=== PATIENT | female | born 1975 | race Caucasian/White ===

== ENCOUNTER 2017-06-03 15:00 | Observation (INO) ==
[2017-06-03] MEDS ORDERED: 0.9 % Sodium Chloride 1,000 ML IVC ONE ×2 (15:18→17:27)
[2017-06-03 15:35] LABS: Bilirubin,Urine Negative (Negative); Blood,Urine Negative (Negative); Clarity,Urine Clear (Clear); Color,Urine Yellow (Yellow); Glucose,Urine (UA) >=1000 mg/dL (Normal); Ketones,Urine Negative (Negative); Leukocyte Esterase,Urine Negative (Negative); Nitrite,Urine Negative (Negative); PH,Urine 6.5 pH Units (5.0-8.0); Protein,Urine Negative (Neg-Trace); Specific Gravity,Urine > 1.030 (1.010-1.025); Urobilinogen,Urine Normal (Normal)
[2017-06-03 15:41] LABS: Basophils # 0.1 K/mcL (0.0-0.2); Basophils % 0.7 %; Eosinophils # 0.2 K/mcL (0.0-0.6); Eosinophils % 2.5 %; Hematocrit 43.2 % (35.3-44.9); Hemoglobin 14.9 g/dL (11.5-15.4); Immature Granulocytes % 0.3 % (0-4); Lymphocytes # 3.2 K/mcL (0.6-4.6); Lymphocytes % 46.3 %; Mean Corpuscular HGB Conc 34.5 g/dL (31.6-35.5); Mean Corpuscular Hemoglobin 29.6 pg (28.0-33.3); Mean Corpuscular Volume 85.9 fL (83.0-100.0); Mean Platelet Volume 11.8 fL (9.4-12.4); Monocytes # 0.5 K/mcL (0.0-1.3); Monocytes % 7.2 %; Neutrophils # 2.9 K/mcL (1.6-8.9); Platelet Count 157 K/mcL (140-400); Red Blood Count 5.03 M/mcL (3.82-4.97); Red Cell Distribution Width 12.9 % (11.5-14.5)
--- NOTE | 2017-06-03 15:41 | Emergency Department Note ---
Disposition Clinical Impression: Hyperglycemia, Transaminitis, Lactic acidosis Disposition: Admitted As Inpatient Condition: Good General Adult HPI - General Chief complaint: ED General Medical Stated complaint: hyperglycemia Time Seen by Provider: 06/03/17 15:17 Source: patient Mode of arrival: ambulatory Limitations: no limitations Nursing Notes Reviewed: Yes Vital Signs Reviewed: Yes - History of Present Illness HPI Narrative: 42-year-old female presents to emergency Department with concerns of hyperglycemia. Patient states that she has had frequent urination, and intermittent abdominal pain over the past month. Patient states she has lost greater than 15 pounds. Patient states she had a urinalysis performed by her primary care provider which showed a large amount of glucose in her urine. They recommended she come to the emergency department for further care and evaluation. Patient does state she have a history of liver disease but does not have an official diagnosis. Patient denies recent trauma. She has no pain in the emergency department. Pain Scale: 0 - Related Data Home Medications Medication Instructions Recorded Confirmed Gabapentin [Neurontin] 600 mg PO TID 04/15/16 06/03/17 Metoprolol [Lopressor] 25 mg PO BID 04/15/16 06/03/17 hydroCHLOROthiazide 25 mg PO DAILY 04/15/16 06/03/17 [Hydrochlorothiazide] ALPRAZolam [Xanax 1 MG Tablet] 1 mg PO BID 06/03/17 06/03/17 Buprenorphine HCl/Naloxone HCl 1 each SL BID 06/03/17 06/03/17 [Suboxone 8 mg-2 mg Sl Film] Lisinopril [Lisinopril] 30 mg PO DAILY 06/03/17 06/03/17 Allergies Allergy/AdvReac Type Severity Reaction Status Date / Time No Known Allergies Allergy Verified 04/14/16 22:45 All systems ED: reviewed and negative except as stated. Constitutional: Reports: weakness. Denies: fever, chills Cardiovascular: Reports: dyspnea on exertion. Denies: chest pain, palpitations , syncope, paroxysmal nocturnal dyspnea Respiratory: Reports: cough, dyspnea. Denies: wheezes, hemoptysis Gastrointestinal: Reports: abdominal pain, nausea, vomiting. Denies: diarrhea Genitourinary: Reports: urgency, dysuria, frequency. Denies: hematuria, discharge Musculoskeletal: Denies: back pain, neck pain Integumentary: Denies: rash, abrasion, lesions Past Medical History - Past Medical History Attestation: Yes The following information was validated with the patient. Source: patient Medical history: Reports: hypertension, other (Gestational diabetes) Psychiatric history: Reports: no psych history - Social History Smoking Status: Current every day smoker Smokeless Tobacco Status: No Alcohol use: Reports: none Drug use: Reports: none Physical Exam General: Alert and in no acute distress but anxious during the exam Skin: Warm, dry, intact Head: Normocephalic and atraumatic Neck: Supple, trachea midline and no tenderness Cardiovascular: RRR, no murmur, normal perfusion Respiratory: CTAB, no wheezing, cough, or respiratory distress Musculoskeletal: Normal strength, no tenderness, swelling or deformity GI: Soft, nontender, nondistended. Bowel sounds present Neuro: A&O to person, place, time and situation. No focal deficits noted on exam Psychiatric: cooperative and appropriate mood and affect. - General Limitations: no limitations General appearance: alert, in no apparent distress Course Vital Signs Temperature 99.2 F 06/03/17 15:00 Pulse Rate 110 06/03/17 15:00 Respiratory Rate 18 06/03/17 15:00 Blood Pressure 143/84 06/03/17 15:00 O2 Sat by Pulse Oximetry 99 06/03/17 15:00 Temperature 98.1 F 06/03/17 23:28 Pulse Rate 63 06/03/17 23:28 Respiratory Rate 18 06/03/17 23:28 Blood Pressure 92/71 06/03/17 23:28 O2 Sat by Pulse Oximetry 96 06/03/17 19:47 Oxygen Delivery Oxygen Delivery Room Air Medical Decision Making - Medical Records Medical records reviewed: Yes I reviewed the patient's medical records. - Lab Data Lab results reviewed: Yes I reviewed the patient's lab results. Result diagrams: 06/03/17 15:32 06/03/17 20:02 Lab Results 06/03/17 06/03/17 06/03/17 Range/Units 15:12 15:30 15:32 WBC 6.8 (4.3-11.1) K/mcL RBC 5.03 H (3.82-4.97) M/mcL Hgb 14.9 (11.5-15.4) g/dL Hct 43.2 (35.3-44.9) % MCV 85.9 (83.0-100.0) fL MCH 29.6 (28.0-33.3) pg MCHC 34.5 (31.6-35.5) g/dL RDW 12.9 (11.5-14.5) % Plt Count 157 (140-400) K/mcL MPV 11.8 (9.4-12.4) fL Immature Gran % 0.3 (0-4) % Seg Neutrophils % 43.0 % Lymphocytes % 46.3 % Monocytes % 7.2 % Eosinophils % 2.5 % Basophils % 0.7 % Neutrophils # 2.9 (1.6-8.9) K/mcL Lymphocytes # 3.2 (0.6-4.6) K/mcL Monocytes # 0.5 (0.0-1.3) K/mcL Eosinophils # 0.2 (0.0-0.6) K/mcL Basophils # 0.1 (0.0-0.2) K/mcL ABG pH (7.32-7.45) pH Units ABG pCO2 (35-45) mmHg ABG pO2 (85-104) mmHg ABG HCO3 (21-27) mEq/L ABG Total CO2 (20-26) mEq/L ABG O2 Saturation (95-98) % ABG Base Excess (-2.0 to 3.0) mEq/L Blood Gas Modality Inspired O2 % Sodium (136-145) mEq/L Potassium (3.5-4.5) mEq/L Chloride (98-109) mEq/L Carbon Dioxide (19-29) mEq/L BUN (7-20) mg/dL Creatinine (0.57-1.11) mg/dL Est GFR ( Amer) (> 60) Est GFR (Non-Af Amer) (> 60) BUN/Creatinine Ratio (6-26) Glucose (70-99) mg/dL POC Glucose > 600 H* (58-89) Est Mean Plasma Glucose mg/dl Hemoglobin A1c ( - 5.6) % Calculated Osmolality (280-300) Lactic Acid (0.5-2.2) mmol/L Calcium (8.6-10.8) mg/dL Total Bilirubin (0.2-1.2) mg/dL Direct Bilirubin (0.0-0.5) mg/dL Indirect Bilirubin (0.0-1.2) mg/dL AST (5-34) Units/L ALT (0-55) Units/L Alkaline Phosphatase (38-126) Units/L Troponin I (0-0.03) ng/mL Serum Total Protein (6.0-8.3) g/dL Albumin (3.5-5.0) g/dL Globulin (2.4-3.5) g/dL Albumin/Globulin Ratio (1.1-2.2) Lipase (8-78) Units/L Beta-Hydroxybutyric Acd (0.02-0.27) mmol/L Urine Color Yellow (Yellow) Urine Clarity Clear (Clear) Urine pH 6.5 (5.0-8.0) pH Units Ur Specific [place] > 1.030 H (1.010-1.025) Urine Protein Negative (Neg-Trace) mg/dL Urine Glucose (UA) >=1000 H (Normal) mg/dL Urine Ketones Negative (Negative) mg/dL Urine Blood Negative (Negative) Urine Nitrite Negative (Negative) Urine Bilirubin Negative (Negative) Urine Urobilinogen Normal (Normal) mg/dL Ur Leukocyte Esterase Negative (Negative) Ur Culture Indicated? NO (NO) Hep Bs Antigen (Nonreactive) 06/03/17 06/03/17 06/03/17 Range/Units 15:32 15:32 15:32 WBC (4.3-11.1) K/mcL RBC (3.82-4.97) M/mcL Hgb (11.5-15.4) g/dL Hct (35.3-44.9) % MCV (83.0-100.0) fL MCH (28.0-33.3) pg MCHC (31.6-35.5) g/dL RDW (11.5-14.5) % Plt Count (140-400) K/mcL MPV (9.4-12.4) fL Immature Gran % (0-4) % Seg Neutrophils % % Lymphocytes % % Monocytes % % Eosinophils % % Basophils % % Neutrophils # (1.6-8.9) K/mcL Lymphocytes # (0.6-4.6) K/mcL Monocytes # (0.0-1.3) K/mcL Eosinophils # (0.0-0.6) K/mcL Basophils # (0.0-0.2) K/mcL ABG pH (7.32-7.45) pH Units ABG pCO2 (35-45) mmHg ABG pO2 (85-104) mmHg ABG HCO3 (21-27) mEq/L ABG Total CO2 (20-26) mEq/L ABG O2 Saturation (95-98) % ABG Base Excess (-2.0 to 3.0) mEq/L Blood Gas Modality Inspired O2 % Sodium 130 L (136-145) mEq/L Potassium 4.5 (3.5-4.5) mEq/L Chloride 97 L (98-109) mEq/L Carbon Dioxide 22 (19-29) mEq/L BUN 6 L (7-20) mg/dL Creatinine 1.12 H (0.57-1.11) mg/dL Est GFR ( Amer) > 60 (> 60) Est GFR (Non-Af Amer) 54 L (> 60) BUN/Creatinine Ratio 5 L (6-26) Glucose 730 H* (70-99) mg/dL POC Glucose (58-89) Est Mean Plasma Glucose mg/dl Hemoglobin A1c ( - 5.6) % Calculated Osmolality 303 H (280-300) Lactic Acid (0.5-2.2) mmol/L Calcium 9.3 (8.6-10.8) mg/dL Total Bilirubin 1.8 H (0.2-1.2) mg/dL Direct Bilirubin 1.2 H (0.0-0.5) mg/dL Indirect Bilirubin 0.6 (0.0-1.2) mg/dL AST 1135 H (5-34) Units/L ALT 1357 H (0-55) Units/L Alkaline Phosphatase 1165 H (38-126) Units/L Troponin I 0.00 (0-0.03) ng/mL Serum Total Protein 6.8 (6.0-8.3) g/dL Albumin 3.2 L (3.5-5.0) g/dL Globulin 3.6 H (2.4-3.5) g/dL Albumin/Globulin Ratio 0.9 L (1.1-2.2) Lipase 115 H (8-78) Units/L Beta-Hydroxybutyric Acd 0.22 (0.02-0.27) mmol/L Urine Color (Yellow) Urine Clarity (Clear) Urine pH (5.0-8.0) pH Units Ur Specific [place] (1.010-1.025) Urine Protein (Neg-Trace) mg/dL Urine Glucose (UA) (Normal) mg/dL Urine Ketones (Negative) mg/dL Urine Blood (Negative) Urine Nitrite (Negative) Urine Bilirubin (Negative) Urine Urobilinogen (Normal) mg/dL Ur Leukocyte Esterase (Negative) Ur Culture Indicated? (NO) Hep Bs Antigen (Nonreactive) 06/03/17 06/03/17 06/03/17 Range/Units 15:32 18:20 18:59 WBC (4.3-11.1) K/mcL RBC (3.82-4.97) M/mcL Hgb (11.5-15.4) g/dL Hct (35.3-44.9) % MCV (83.0-100.0) fL MCH (28.0-33.3) pg MCHC (31.6-35.5) g/dL RDW (11.5-14.5) % Plt Count (140-400) K/mcL MPV (9.4-12.4) fL Immature Gran % (0-4) % Seg Neutrophils % % Lymphocytes % % Monocytes % % Eosinophils % % Basophils % % Neutrophils # (1.6-8.9) K/mcL Lymphocytes # (0.6-4.6) K/mcL Monocytes # (0.0-1.3) K/mcL Eosinophils # (0.0-0.6) K/mcL Basophils # (0.0-0.2) K/mcL ABG pH 7.42 (7.32-7.45) pH Units ABG pCO2 38 (35-45) mmHg ABG pO2 86 (85-104) mmHg ABG HCO3 25 (21-27) mEq/L ABG Total CO2 25.8 (20-26) mEq/L ABG O2 Saturation 97 (95-98) % ABG Base Excess 0.2 (-2.0 to 3.0) mEq/L Blood Gas Modality RA Inspired O2 21 % Sodium (136-145) mEq/L Potassium (3.5-4.5) mEq/L Chloride (98-109) mEq/L Carbon Dioxide (19-29) mEq/L BUN (7-20) mg/dL Creatinine (0.57-1.11) mg/dL Est GFR ( Amer) (> 60) Est GFR (Non-Af Amer) (> 60) BUN/Creatinine Ratio (6-26) Glucose (70-99) mg/dL POC Glucose 231 H (58-89) Est Mean Plasma Glucose mg/dl Hemoglobin A1c ( - 5.6) % Calculated Osmolality (280-300) Lactic Acid 3.2 H (0.5-2.2) mmol/L Calcium (8.6-10.8) mg/dL Total Bilirubin (0.2-1.2) mg/dL Direct Bilirubin (0.0-0.5) mg/dL Indirect Bilirubin (0.0-1.2) mg/dL AST (5-34) Units/L ALT (0-55) Units/L Alkaline Phosphatase (38-126) Units/L Troponin I (0-0.03) ng/mL Serum Total Protein (6.0-8.3) g/dL Albumin (3.5-5.0) g/dL Globulin (2.4-3.5) g/dL Albumin/Globulin Ratio (1.1-2.2) Lipase (8-78) Units/L Beta-Hydroxybutyric Acd (0.02-0.27) mmol/L Urine Color (Yellow) Urine Clarity (Clear) Urine pH (5.0-8.0) pH Units Ur Specific [place] (1.010-1.025) Urine Protein (Neg-Trace) mg/dL Urine Glucose (UA) (Normal) mg/dL Urine Ketones (Negative) mg/dL Urine Blood (Negative) Urine Nitrite (Negative) Urine Bilirubin (Negative) Urine Urobilinogen (Normal) mg/dL Ur Leukocyte Esterase (Negative) Ur Culture Indicated? (NO) Hep Bs Antigen (Nonreactive) 06/03/17 06/03/17 06/03/17 Range/Units 20:02 20:02 20:02 WBC (4.3-11.1) K/mcL RBC (3.82-4.97) M/mcL Hgb (11.5-15.4) g/dL Hct (35.3-44.9) % MCV (83.0-100.0) fL MCH (28.0-33.3) pg MCHC (31.6-35.5) g/dL RDW (11.5-14.5) % Plt Count (140-400) K/mcL MPV (9.4-12.4) fL Immature Gran % (0-4) % Seg Neutrophils % % Lymphocytes % % Monocytes % % Eosinophils % % Basophils % % Neutrophils # (1.6-8.9) K/mcL Lymphocytes # (0.6-4.6) K/mcL Monocytes # (0.0-1.3) K/mcL Eosinophils # (0.0-0.6) K/mcL Basophils # (0.0-0.2) K/mcL ABG pH (7.32-7.45) pH Units ABG pCO2 (35-45) mmHg ABG pO2 (85-104) mmHg ABG HCO3 (21-27) mEq/L ABG Total CO2 (20-26) mEq/L ABG O2 Saturation (95-98) % ABG Base Excess (-2.0 to 3.0) mEq/L Blood Gas Modality Inspired O2 % Sodium 137 D (136-145) mEq/L Potassium 3.9 (3.5-4.5) mEq/L Chloride 106 (98-109) mEq/L Carbon Dioxide 23 (19-29) mEq/L BUN 6 L (7-20) mg/dL Creatinine 0.73 (0.57-1.11) mg/dL Est GFR ( Amer) > 60 (> 60) Est GFR (Non-Af Amer) > 60 (> 60) BUN/Creatinine Ratio 8 (6-26) Glucose 258 H (70-99) mg/dL POC Glucose (58-89) Est Mean Plasma Glucose > 355 mg/dl Hemoglobin A1c >= 14.1 H ( - 5.6) % Calculated Osmolality 290 (280-300) Lactic Acid (0.5-2.2) mmol/L Calcium 8.3 L (8.6-10.8) mg/dL Total Bilirubin (0.2-1.2) mg/dL Direct Bilirubin (0.0-0.5) mg/dL Indirect Bilirubin (0.0-1.2) mg/dL AST (5-34) Units/L ALT (0-55) Units/L Alkaline Phosphatase (38-126) Units/L Troponin I (0-0.03) ng/mL Serum Total Protein (6.0-8.3) g/dL Albumin (3.5-5.0) g/dL Globulin (2.4-3.5) g/dL Albumin/Globulin Ratio (1.1-2.2) Lipase (8-78) Units/L Beta-Hydroxybutyric Acd (0.02-0.27) mmol/L Urine Color (Yellow) Urine Clarity (Clear) Urine pH (5.0-8.0) pH Units Ur Specific [place] (1.010-1.025) Urine Protein (Neg-Trace) mg/dL Urine Glucose (UA) (Normal) mg/dL Urine Ketones (Negative) mg/dL Urine Blood (Negative) Urine Nitrite (Negative) Urine Bilirubin (Negative) Urine Urobilinogen (Normal) mg/dL Ur Leukocyte Esterase (Negative) Ur Culture Indicated? (NO) Hep Bs Antigen Nonreactive (Nonreactive) 06/03/17 Range/Units 20:02 WBC (4.3-11.1) K/mcL RBC (3.82-4.97) M/mcL Hgb (11.5-15.4) g/dL Hct (35.3-44.9) % MCV (83.0-100.0) fL MCH (28.0-33.3) pg MCHC (31.6-35.5) g/dL RDW (11.5-14.5) % Plt Count (140-400) K/mcL MPV (9.4-12.4) fL Immature Gran % (0-4) % Seg Neutrophils % % Lymphocytes % % Monocytes % % Eosinophils % % Basophils % % Neutrophils # (1.6-8.9) K/mcL Lymphocytes # (0.6-4.6) K/mcL Monocytes # (0.0-1.3) K/mcL Eosinophils # (0.0-0.6) K/mcL Basophils # (0.0-0.2) K/mcL ABG pH (7.32-7.45) pH Units ABG pCO2 (35-45) mmHg ABG pO2 (85-104) mmHg ABG HCO3 (21-27) mEq/L ABG Total CO2 (20-26) mEq/L ABG O2 Saturation (95-98) % ABG Base Excess (-2.0 to 3.0) mEq/L Blood Gas Modality Inspired O2 % Sodium (136-145) mEq/L Potassium (3.5-4.5) mEq/L Chloride (98-109) mEq/L Carbon Dioxide (19-29) mEq/L BUN (7-20) mg/dL Creatinine (0.57-1.11) mg/dL Est GFR ( Amer) (> 60) Est GFR (Non-Af Amer) (> 60) BUN/Creatinine Ratio (6-26) Glucose (70-99) mg/dL POC Glucose (58-89) Est Mean Plasma Glucose mg/dl Hemoglobin A1c ( - 5.6) % Calculated Osmolality (280-300) Lactic Acid 1.1 (0.5-2.2) mmol/L Calcium (8.6-10.8) mg/dL Total Bilirubin (0.2-1.2) mg/dL Direct Bilirubin (0.0-0.5) mg/dL Indirect Bilirubin (0.0-1.2) mg/dL AST (5-34) Units/L ALT (0-55) Units/L Alkaline Phosphatase (38-126) Units/L Troponin I (0-0.03) ng/mL Serum Total Protein (6.0-8.3) g/dL Albumin (3.5-5.0) g/dL Globulin (2.4-3.5) g/dL Albumin/Globulin Ratio (1.1-2.2) Lipase (8-78) Units/L Beta-Hydroxybutyric Acd (0.02-0.27) mmol/L Urine Color (Yellow) Urine Clarity (Clear) Urine pH (5.0-8.0) pH Units Ur Specific [place] (1.010-1.025) Urine Protein (Neg-Trace) mg/dL Urine Glucose (UA) (Normal) mg/dL Urine Ketones (Negative) mg/dL Urine Blood (Negative) Urine Nitrite (Negative) Urine Bilirubin (Negative) Urine Urobilinogen (Normal) mg/dL Ur Leukocyte Esterase (Negative) Ur Culture Indicated? (NO) Hep Bs Antigen (Nonreactive) - Radiology Data Radiology results reviewed: Yes I reviewed the patient's radiology results. - EKG Data EKG #1 EKG attestation: Yes I reviewed and interpreted this EKG. EKG results narrative: ECG - interpreted by ED physician. Rate 96, normal sinus rhythm, no STEMI, WA, QT intervals, and QRS within normal limits
[2017-06-03 15:55] LABS: BUN/Creatinine Ratio 5 (6-26); Blood Urea Nitrogen 6 mg/dL (7-20); Calcium 9.3 mg/dL (8.6-10.8); Carbon Dioxide 22 mEq/L (19-29); Chloride 97 mEq/L (98-109); Osmolality,Calculated 303 (280-300); Potassium 4.5 mEq/L (3.5-4.5); Sodium 130 mEq/L (136-145); eGFR For African Americans > 60 (> 60); eGFR For Non-African Americans 54 (> 60)
[2017-06-03 16:09] LABS: Glucose 730 mg/dL (70-99)
[2017-06-03 16:21] LABS: Alanine Aminotransferase 1357 Units/L (0-55); Albumin 3.2 g/dL (3.5-5.0); Albumin/Globulin Ratio 0.9 (1.1-2.2); Alkaline Phosphatase 1165 Units/L (38-126); Aspartate Amino Transferase 1135 Units/L (5-34); Bilirubin,Direct 1.2 mg/dL (0.0-0.5); Bilirubin,Indirect 0.6 mg/dL (0.0-1.2); Bilirubin,Total 1.8 mg/dL (0.2-1.2); Globulin 3.6 g/dL (2.4-3.5); Lipase 115 Units/L (8-78); Total Protein 6.8 g/dL (6.0-8.3)
[2017-06-03] MEDS ORDERED: Insulin Human Regular 10 UNIT in 0.9 % Sodium Chloride 10 ML IV ONE (16:33)
[2017-06-03 18:30] LABS: ABG Base Excess 0.2 mEq/L (-2.0 to 3.0); ABG HCO3 25 mEq/L (21-27); ABG Oxygen Saturation 97 % (95-98); ABG PCO2 38 mmHg (35-45); ABG PH 7.42 pH Units (7.32-7.45); ABG PO2 86 mmHg (85-104); ABG TCO2 25.8 mEq/L (20-26); Blood Gas FiO2 21 %
[2017-06-03] MEDS ORDERED: *HR* Dextrose 50 % in Water (Syg) 50 ML SYRINGE IVP PRN ×2 (18:57→23:30)
[2017-06-03] MEDS ORDERED: 0.9 % Sodium Chloride 1,000 ML IVC SCH (19:00)
[2017-06-03] MEDS ORDERED: Insulin Human Regular 100 UNIT in 0.9 % Sodium Chloride 100 ML IVC SCH (19:00)
[2017-06-03] MEDS ORDERED: Naloxone 0.4 MG/ML INJ IVP PRN (19:34)
--- NOTE | 2017-06-03 19:34 | Internal Med History&Physical ---
Date of Encounter: 06/03/17 Time of Encounter: 19:33 Assessment and Plan (1) MARÍA ELENA (acute kidney injury) Current visit: Yes Status: Acute Prerenal acute kidney injury secondary to uncontrolled, newly diagnosed diabetes mellitus. Continue IV fluids Monitor chemistry. (2) Hyperglycemia due to type 2 diabetes mellitus Current visit: Yes Status: Acute Patient presented with serum glucose greater than 700, she improved with IV fluid and administration of regular insulin Patient will be started on long acting insulin at bedtime, prandial insulin with each meal, and correctional dose insulin. A1c is greater than 14%. Monitor fingerstick before meals at bedtime Diabetic diet Patient will benefit from discharge home with insulin therapy She is educated extensively on the diagnoses, complications uncontrolled diabetes mellitus. She would also benefit from endocrinology and dietitian referral upon discharge. Qualifiers: Qualified Code(s): E11.65 - Type 2 diabetes mellitus with hyperglycemia (3) Lactic acidosis Current visit: Yes Status: Acute Possibly secondary to poor clearance from her liver disease. She is improved with IV fluids lactate now 1.1 from 3.2. (4) Transaminitis Current visit: Yes Status: Acute Etiology of transaminitis at this time is possibly from hepatic steatosis as documented by ultrasound. Obtain lipid panel Obtain hepatitis screening Monitor liver function tests. (5) Hepatic steatosis Current visit: Yes Status: Acute As documented by ultrasound Check lipid gauge inspector LFTs (6) Newly diagnosed diabetes Current visit: Yes Status: Acute Management as an hyperglycemia. (7) HTN (hypertension) Current visit: Yes Status: Chronic Patient is on hydrochlorothiazide, lisinopril and metoprolol at home Hold hydrochlorothiazide continue lisinopril and metoprolol. Qualifiers: Hypertension type: essential hypertension Qualified Code(s): I10 - Essential (primary) hypertension Internal Medicine - H&P: HPI Chief complaint: Elevated blood sugar Admitted From: Home Plans for Post Hospital Care: Home History of present illness: Ms. Briggs is a 42 year old female with medical history of opiate dependence and hypertension who presented to the ER as a referral from her primary care physician for glucosuria and hyperglycemia. Patient denies prior history of diabetes mellitus. She endorses 3 month history of polyuria, polydipsia, an unintentional 15 pound weight loss. She also endorsed a recent episode of streptococcal pharyngitis and rhinitis. She endorsed a family history of diabetes mellitus in her mother. She had gestational diabetes during the of her last child several years ago, after which she had never seen a primary care physician. She denies prior history of liver disease. She also endorsed blurry vision, with more difficulty reading small print, all started at the same time with polyuria and polydipsia. She denies chest pain, she denies difficulty breathing, she denies abdominal pain, no changes in bowel movement. No nausea or vomiting. No leg edema and no neurologic symptoms. Examination in the ER was remarkable for dry oral mucosa. Otherwise unremarkable. Workup in the ER revealed a normal blood gas, EKG was normal, CBC was normal, chemistry revealed a presenting glucose of 730, pseudohyponatremia, lactic acidosis of 3.2 hyperbilirubinemia and transaminitis with ALT and AST greater than 1000. Serum ketones negative. Urine analysis reveals glucosuria. Liver ultrasound reveals hepatic steatosis. Past Med Surg Social Fam HX - Past Medical History Medical history: hypertension, other (Gestational diabetes) Psychiatric history: no psych history - Social History Smoking Status: Current every day smoker Smokeless Tobacco Status: No Alcohol use: none Drug use: none - Family History Mother Hx Family Endocrine Disorder: Yes (DM) Internal Medicine - H&P: Meds Gabapentin [Neurontin] 600 mg PO TID 04/15/16 [History] Metoprolol [Lopressor] 25 mg PO BID 04/15/16 [History] hydroCHLOROthiazide [Hydrochlorothiazide] 25 mg PO DAILY 04/15/16 [History] ALPRAZolam [Xanax 1 MG Tablet] 1 mg PO BID 06/03/17 [History] Buprenorphine HCl/Naloxone HCl [Suboxone 8 mg-2 mg Sl Film] 1 each SL BID [History] Lisinopril [Lisinopril] 30 mg PO DAILY 06/03/17 [History] 3 Allergy/AdvReac Type Severity Reaction Status Date / Time No Known Allergies Allergy Verified 04/14/16 22:45 All Systems PM: A 10-system review of systems was performed and is negative for pertinent findings except as documented above in the HPI. - Constitutional Constitutional: as per HPI - EENT Eyes: as per HPI Ears: as per HPI Nose, mouth and throat: as per HPI - Cardiovascular Cardiovascular ROS IM: as per HPI - Respiratory Respiratory: as per HPI - Gastrointestinal Gastrointestinal: as per HPI - Genitourinary Genitourinary: as per HPI - Musculoskeletal Musculoskeletal ROS IM: as per HPI - Integumentary Integumentary IM: as per HPI - Neurological Neurological ROS: as per HPI - Endocrine Endocrine IM: as per HPI - Hematologic/Lymphatic Hematologic/Lymphatic: as per HPI - Constitutional Vitals: Temp Pulse Resp BP Pulse Ox 99.2 F 77 22 103/73 98 06/03/17 15:00 06/03/17 19:14 06/03/17 19:12 06/03/17 19:14 06/03/17 19:14 General appearance: Present: A&O X 3, pleasant, no acute distress - Head Head exam: Present: atraumatic, normocephalic - Eye Eye exam: Present: PERRL, conjuntiva pink, sclera anicteric Pupils: Present: PERRL - ENT ENT exam: Present: mucous membranes dry - Neck Neck exam general surgery: Present: supple, trachea midline. Absent: lymphadenopathy - Respiratory Respiratory exam: Present: CTAB. Absent: accessory muscle use, rales, rhonchi, wheezes - Cardiovascular Cardiovascular exam: Present: RRR, +S1, +S2. Absent: diastolic murmur, gallop, rubs, systolic murmur - GI/Abdominal GI/Abdominal exam: Present: normal bowel sounds, soft, no peritoneal signs. Absent: distended, tenderness - Extremities Exam Extremities exam: Present: warm, radial pulses palpable and symmetrical. Absent : calf tenderness, cyanotic, pedal edema - Neurological Exam Neurological exam: Present: alert, CN II-XII intact, oriented X3, no focal deficits. Absent: pronater drift, facial droop, speech deficit - Skin Skin exam: Present: dry, intact Internal Med - H&P Results - Labs CBC & Chem 7: 06/03/17 15:32 06/03/17 20:02 Labs: Short CBC 06/03/17 Range/Units 15:32 WBC 6.8 (4.3-11.1) K/mcL Hgb 14.9 (11.5-15.4) g/dL Hct 43.2 (35.3-44.9) % Plt Count 157 (140-400) K/mcL Neutrophils # 2.9 (1.6-8.9) K/mcL BMP 06/03/17 15:32 Sodium 130 L Potassium 4.5 Chloride 97 L Carbon Dioxide 22 BUN 6 L Creatinine 1.12 H Glucose 730 H* Calcium 9.3 Cardiac Enzymes 06/03/17 Range/Units 15:32 Troponin I 0.00 (0-0.03) ng/mL Liver Function 06/03/17 Range/Units 15:32 Total Bilirubin 1.8 H (0.2-1.2) mg/dL Direct Bilirubin 1.2 H (0.0-0.5) mg/dL AST 1135 H (5-34) Units/L ALT 1357 H (0-55) Units/L Alkaline Phosphatase 1165 H (38-126) Units/L Albumin 3.2 L (3.5-5.0) g/dL Urine 06/03/17 Range/Units 15:12 Urine Color Yellow (Yellow) Urine Clarity Clear (Clear) Urine pH 6.5 (5.0-8.0) pH Units Ur Specific [place] > 1.030 H (1.010-1.025) Urine Protein Negative (Neg-Trace) mg/dL Urine Glucose (UA) >=1000 H (Normal) mg/dL - ABG Interpretation ABG results: 06/03/17 18:20 ABG pH 7.42 ABG pCO2 38 ABG pO2 86 ABG HCO3 25 ABG Total CO2 25.8 ABG O2 Saturation 97 ABG Base Excess 0.2 - Impressions ITS Impressions Chest X-Ray 06/03/17 15:42 IMPRESSION: 1. No active pulmonary disease. D/ / Jorge Morales MD / Jorge Morales MD Interpreting Provider: Jorge Morales MD Liver Ultrasound 06/03/17 16:32 IMPRESSION: Cholecystectomy. Hepatic steatosis. Otherwise unremarkable study. D/ / Gurvinder Anne MD / Gurvinder Anne MD Interpreting Provider: Gurvinder Anne MD
[2017-06-03 20:19] LABS: Estimated Average Glucose > 355 mg/dl; Hemoglobin A1C >= 14.1 %
[2017-06-03 20:22] LABS: BUN/Creatinine Ratio 8 (6-26); Blood Urea Nitrogen 6 mg/dL (7-20); Calcium 8.3 mg/dL (8.6-10.8); Carbon Dioxide 23 mEq/L (19-29); Chloride 106 mEq/L (98-109); Glucose 258 mg/dL (70-99); Osmolality,Calculated 290 (280-300); Potassium 3.9 mEq/L (3.5-4.5); eGFR For African Americans > 60 (> 60); eGFR For Non-African Americans > 60 (> 60)
[2017-06-03 20:23] LABS: Sodium 137 mEq/L (136-145)
[2017-06-03 20:43] LABS: Hepatitis B Surface Antigen Nonreactive (Nonreactive)
[2017-06-03] MEDS ORDERED: Insulin DETEMIR 100 UNIT/ML X5UNITS SQ SCH (21:00)
[2017-06-03] MEDS: ALPRAZolam 1 MG TABLET PO SCH (21:28)
[2017-06-03] MEDS: Gabapentin 300 MG CAPSULE PO SCH (21:28)
[2017-06-03] MEDS ORDERED: D5% in Water 1,000 ML IVC PRN (23:30)
[2017-06-03] MEDS ORDERED: Dextrose Gel 15 GM PO PRN ×2 (23:30)
[2017-06-04] MEDS: 0.9 % Sodium Chloride 1,000 ML IVC SCH ×2 (00:33→08:53)
[2017-06-04 06:15] LABS: Basophils % 0.6 %; Eosinophils # 0.2 K/mcL (0.0-0.6); Eosinophils % 3.3 %; Hematocrit 37.1 % (35.3-44.9); Hemoglobin 12.5 g/dL (11.5-15.4); Immature Granulocytes % 0.1 % (0-4); Immature Platelets 7.5 % (1.1-6.1); Lymphocytes # 3.6 K/mcL (0.6-4.6); Mean Corpuscular HGB Conc 33.7 g/dL (31.6-35.5); Mean Corpuscular Hemoglobin 29.8 pg (28.0-33.3); Mean Corpuscular Volume 88.5 fL (83.0-100.0); Mean Platelet Volume 11.8 fL (9.4-12.4); Monocytes # 0.4 K/mcL (0.0-1.3); Monocytes % 5.6 %; Platelet Count 130 K/mcL (140-400); Red Blood Count 4.19 M/mcL (3.82-4.97); Segmented Neutrophils % 41.4 %
[2017-06-04 06:45] LABS: Alanine Aminotransferase 1029 Units/L (0-55); Albumin/Globulin Ratio 0.9 (1.1-2.2); Alkaline Phosphatase 916 Units/L (38-126); Aspartate Amino Transferase 946 Units/L (5-34); BUN/Creatinine Ratio 12 (6-26); Bilirubin,Total 2.3 mg/dL (0.2-1.2); Blood Urea Nitrogen 9 mg/dL (7-20); Calcium 8.2 mg/dL (8.6-10.8); Carbon Dioxide 24 mEq/L (19-29); Chloride 106 mEq/L (98-109); Chol/HDL Ratio 9.3 (0-4.9); Cholesterol 148 mg/dL (< 200); Globulin 2.8 g/dL (2.4-3.5); Glucose 340 mg/dL (70-99); HDL Cholesterol 16 mg/dL (40-59); LDL Cholesterol,Calculated 87 mg/dL (0-99); Magnesium 1.6 mg/dL (1.6-2.6); Osmolality,Calculated 294 (280-300); Phosphorous 2.8 mg/dL (2.3-4.7); Sodium 136 mEq/L (136-145); Triglycerides 223 mg/dL (< 150); eGFR For African Americans > 60 (> 60); eGFR For Non-African Americans > 60 (> 60)
[2017-06-04 06:46] LABS: Albumin 2.4 g/dL (3.5-5.0); Total Protein 5.2 g/dL (6.0-8.3)
[2017-06-04] MEDS: Insulin LISPRO 300 UNITS/3 ML VIAL SQ SCH ×6 (08:54→17:08)
[2017-06-04] MEDS: Gabapentin 300 MG CAPSULE PO SCH ×3 (08:56→20:56)
[2017-06-04] MEDS: ALPRAZolam 1 MG TABLET PO SCH ×2 (08:56→20:56)
[2017-06-04 13:38] LABS: Lipase 24 Units/L (8-78)
--- NOTE | 2017-06-04 16:42 | Internal Med Progress Note ---
Date of Encounter: 06/04/17 Time of Encounter: 09:00 - Assessment and plan (1) Abnormal liver function Current Visit: Yes Status: Acute Assessment and plan: AST and ALT over 1000. Etiology is undetermined. US liver shows hepatic steatosis. Patient denies abdominal pain, nausea, or vomiting. History of IV drug use. We will check hepatitis panel. GI consult. Avoid hepatic toxic medications. Follow-up liver function closely. (2) Newly diagnosed diabetes Current Visit: Yes Status: Acute Assessment and plan: Patient to present to ER with glucose level over 700. Hemoglobin A1c over 14. Consider newly diagnosed diabetes. We will start basal and sliding scale insulin coverage. Patient needs diabetic education which will be provided by our nurse. Patient to need follow-up with PCP as outpatient and will benefit from outpatient further diabetic education and endocrinology referral. (3) HTN (hypertension) Current Visit: Yes Status: Chronic Assessment and plan: BP is stable. Continue home medication. Qualifiers: Hypertension type: essential hypertension Qualified Code(s): I10 - Essential (primary) hypertension (4) DVT prophylaxis Current Visit: Yes Status: Acute Assessment and plan: Patient is young and ambulating well, low risk for DVT, no anticoagulation needed - Time Spent With Patient 25 - 35 minutes - Subjective Interval history: Patient is a 42-year-old female admitted for uncontrolled diabetes. Past medical history is significant for hypertension. Patient was seen and examined. Denies any discomfort. Ask for going home. Vitals are stable. However, patient has abnormal liver function. Hepatitis test pending. We will consult GI. - Constitutional Vitals: Temp Pulse Resp BP Pulse Ox 98.5 F 72 12 98/57 96 06/04/17 15:31 06/04/17 15:31 06/04/17 15:31 06/04/17 15:31 06/04/17 15:31 General appearance: Present: A&O X 3, pleasant, no acute distress - Head Head exam: Present: atraumatic, normocephalic - Eye Eye exam: Present: PERRL, conjuntiva pink, sclera anicteric Pupils: Present: PERRL - Neck Neck exam general surgery: Present: supple, trachea midline. Absent: lymphadenopathy - Respiratory Respiratory exam: Present: CTAB. Absent: accessory muscle use, rales, rhonchi, wheezes - Cardiovascular Cardiovascular exam: Present: RRR, +S1, +S2. Absent: diastolic murmur, gallop, rubs, systolic murmur - GI/Abdominal GI/Abdominal exam: Present: normal bowel sounds, soft, no peritoneal signs. Absent: distended, tenderness - Extremities Exam Extremities exam: Present: warm, radial pulses palpable and symmetrical. Absent : calf tenderness, cyanotic, pedal edema - Neurological Exam Neurological exam: Present: CN II-XII intact, oriented X3, no focal deficits. Absent: pronater drift, facial droop, speech deficit - Skin Skin exam: Present: dry, intact Internal Medicine: Result - Labs CBC & Chem 7: 06/04/17 04:03 06/04/17 05:03 Labs: Short CBC 06/04/17 Range/Units 04:03 WBC 7.3 (4.3-11.1) K/mcL Hgb 12.5 D (11.5-15.4) g/dL Hct 37.1 (35.3-44.9) % Plt Count 130 L (140-400) K/mcL Neutrophils # 3.0 (1.6-8.9) K/mcL BMP 06/04/17 05:03 Sodium 136 Potassium 4.0 Chloride 106 Carbon Dioxide 24 BUN 9 Creatinine 0.73 Glucose 340 H Calcium 8.2 L Liver Function 06/04/17 Range/Units 05:03 Total Bilirubin 2.3 H (0.2-1.2) mg/dL AST 946 H (5-34) Units/L ALT 1029 H (0-55) Units/L Alkaline Phosphatase 916 H (38-126) Units/L Albumin 2.4 L D (3.5-5.0) g/dL - ABG Interpretation ABG results: ABG ABG pH 7.42 pH Units (7.32-7.45) 06/03/17 18:20 ABG pCO2 38 mmHg (35-45) 06/03/17 18:20 ABG pO2 86 mmHg (85-104) 06/03/17 18:20 ABG O2 Saturation 97 % (95-98) 06/03/17 18:20 Consult Discharge Plan - Plan Referrals: Heike Dinh MD [Primary Care Provider] -
[2017-06-04 16:45] LABS: Hepatitis A Antibody IgM Nonreactive (Nonreactive); Hepatitis B Surface Antibody 0.07 mIU/mL
[2017-06-04 16:48] LABS: Hepatitis C Virus Antibody Reactive (Nonreactive)
[2017-06-04] MEDS ORDERED: Insulin DETEMIR 100 UNIT/ML X5UNITS SQ SCH (21:00)
[2017-06-04] MEDS ORDERED: Insulin LISPRO 300 UNITS/3 ML VIAL SQ SCH (21:00)
[2017-06-05 05:30] LABS: Basophils # 0.1 K/mcL (0.0-0.2); Basophils % 0.6 %; Eosinophils # 0.2 K/mcL (0.0-0.6); Eosinophils % 2.7 %; Hematocrit 39.5 % (35.3-44.9); Immature Granulocytes % 0.4 % (0-4); Lymphocytes % 48.6 %; Mean Corpuscular HGB Conc 33.4 g/dL (31.6-35.5); Mean Corpuscular Volume 86.8 fL (83.0-100.0); Monocytes # 0.4 K/mcL (0.0-1.3); Monocytes % 5.4 %; Neutrophils # 3.3 K/mcL (1.6-8.9); Platelet Count 142 K/mcL (140-400); Red Blood Count 4.55 M/mcL (3.82-4.97); Red Cell Distribution Width 13.2 % (11.5-14.5); Segmented Neutrophils % 42.3 %
[2017-06-05 05:49] LABS: Hemoglobin 13.2 g/dL (11.5-15.4); Lymphocytes # 3.7 K/mcL (0.6-4.6)
[2017-06-05 05:50] LABS: BUN/Creatinine Ratio 12 (6-26); Blood Urea Nitrogen 8 mg/dL (7-20); Calcium 8.2 mg/dL (8.6-10.8); Carbon Dioxide 23 mEq/L (19-29); Chloride 108 mEq/L (98-109); Glucose 285 mg/dL (70-99); Osmolality,Calculated 293 (280-300); eGFR For African Americans > 60 (> 60); eGFR For Non-African Americans > 60 (> 60)
[2017-06-05 05:53] LABS: Sodium 137 mEq/L (136-145)
[2017-06-05 06:29] LABS: Platelet Estimate Slight Decrease (Normal)
[2017-06-05 06:30] LABS: Large Platelets Present (Not Present)
[2017-06-05 07:05] VITALS: BP 116/77
[2017-06-05] MEDS ORDERED: Insulin LISPRO 300 UNITS/3 ML VIAL SQ SCH (07:29)
[2017-06-05] MEDS: Insulin LISPRO 300 UNITS/3 ML VIAL SQ SCH ×4 (07:40→12:13)
[2017-06-05] MEDS: ALPRAZolam 1 MG TABLET PO SCH (07:41)
[2017-06-05] MEDS: Gabapentin 300 MG CAPSULE PO SCH (07:41)
[2017-06-05 07:43] LABS: Alanine Aminotransferase 871 Units/L (0-55); Albumin 2.2 g/dL (3.5-5.0); Albumin/Globulin Ratio 0.7 (1.1-2.2); Alkaline Phosphatase 1055 Units/L (38-126); Aspartate Amino Transferase 798 Units/L (5-34); Bilirubin,Direct 1.3 mg/dL (0.0-0.5); Bilirubin,Indirect 0.8 mg/dL (0.0-1.2); Bilirubin,Total 2.1 mg/dL (0.2-1.2); Total Protein 5.2 g/dL (6.0-8.3)
--- NOTE | 2017-06-05 08:08 | Electrocardiograph Report ---
[place] [id number] Test Date: 2017-06-03 Pat Name: Sis Briggs Department: 103 Room: 2NE22 Gender: F Assistant Construction Superintendent: : [id number] Requested By: Rodrigo Dow Order Number: [id number] Reading MD: Chago Landeros MD Measurements Intervals [place] Rate: 96 P: 44 WA: 139 QRS: 29 QRSD: 117 T: 29 QT: 356 QTc: 410 Interpretive Statements SINUS RHYTHM INCOMPLETE RIGHT BUNDLE BRANCH BLOCK Electronically Signed On 06-05-2017 6:28:30 EDT by Chago Landeros MD
--- NOTE | 2017-06-05 11:46 | Gastroenterology Consult Note ---
<Camila Pedroza - Last Filed: 06/05/17 13:39> Date of Encounter: 06/05/17 Time of Encounter: 11:44 - Assessment and plan (1) Transaminitis Status: Acute Assessment and plan: liver ultrasound showed hepatic steatosis. patient tested positive for Hep C Ab screen. etiology of transaminitis likely multifactorial in setting of hepatic steatosis and positive Hep C. Patient does report three month history of IV drug use earlier this year. Plan: follow up outpatient with Dr. Burton. no current indications for any invasive procedures, as LFTs are trending down. Hep C quant and reflex genotype pending. (2) Hepatitis C antibody positive in blood Status: Acute Assessment and plan: plan as above. - Time Spent With Patient Total time spent is greater than 50% in coordination of care (as documented) at patient's floor/unit and/or counseling patient: GI History of Present Illness - Data of Consult Consult date: 06/05/17 Requesting Physician: Citlali Jorge MD - Consult Narrative Reason for consult: abnormal LFTs. History of present illness: Ms. Briggs is a 42 year old female with PMHx of opiate dependence and hypertension. patient arrived to hospital as referral from PCP with chief complaint of glucosuria and hyperglycemia. she is being treated for new onset Diabetes. She reports three month hisotry of polyuria, polydipsia, and fifteen pound weight loss. she does have history of gestational diabetes. patient states she has never been diagnosed with hep C before. she does have a three month history of IV drug use, and she stopped doing this about wo months ago. she has 3 tattoos. she denies ever being in snf. she denies alcohol use, nausea , vomiting, diarrhea, fever, chills, chest pain, shortness of breath, hematuria , hematochezia, melena, hematemesis, current abodominal pain. Past Med Surg Social Fam HX - Past Medical History Medical history: hypertension, other (Gestational diabetes) Psychiatric history: no psych history - Past Surgical History Surgical History: no surgical history - Social History Smoking Status: Current every day smoker Smokeless Tobacco Status: No Alcohol use: none Drug use: none - Family History Mother Hx Family Endocrine Disorder: Yes (DM) All systems PM: reviewed and no additional remarkable complaints except as stated - Constitutional Vitals: Temp Pulse Resp BP Pulse Ox 97.6 F 71 15 116/77 99 06/05/17 07:00 06/05/17 07:00 06/05/17 07:00 06/05/17 07:00 06/05/17 07:38 General appearance: Present: A&O X 3, no acute distress, answers questions appropriately - Head Head exam: Present: atraumatic, normocephalic - Neck Neck exam general surgery: Present: supple, trachea midline - Respiratory Respiratory exam: Present: CTAB - Cardiovascular Cardiovascular exam: Present: RRR, +S1, +S2 - GI/Abdominal GI/Abdominal exam: Present: soft, tenderness (right right upper quadrant and epigastric tenderness to palpation. ). Absent: distended - Extremities Exam Extremities exam: Absent: cyanotic, pedal edema - Neurological Exam Neurological exam: Present: alert, oriented X3, no focal deficits - Psychiatric Psychiatric exam: Present: normal affect, normal mood - Skin Skin exam: Present: intact Results - Labs CBC & Chem 7: 06/05/17 05:03 06/05/17 05:03 Labs: Last Result Calcium 8.2 mg/dL (8.6-10.8) L 06/05/17 05:03 Troponin I 0.00 ng/mL (0-0.03) 06/03/17 15:32 Triglycerides 223 mg/dL (< 150) H 06/04/17 05:03 Entire Visit Hgb 13.2 g/dL (11.5-15.4) 06/05/17 05:03 Hct 39.5 % (35.3-44.9) 06/05/17 05:03 Total Bilirubin 2.1 mg/dL (0.2-1.2) H 06/05/17 05:03 AST 798 Units/L (5-34) H 06/05/17 05:03 ALT 871 Units/L (0-55) H 06/05/17 05:03 Lipase 24 Units/L (8-78) 06/04/17 05:03 - ABG ABG results: ABG ABG pH 7.42 pH Units (7.32-7.45) 06/03/17 18:20 ABG pCO2 38 mmHg (35-45) 06/03/17 18:20 ABG pO2 86 mmHg (85-104) 06/03/17 18:20 ABG O2 Saturation 97 % (95-98) 06/03/17 18:20 Consult Discharge Plan - Plan Instructions: Insulin Lispro (Injection), How to Check Your Blood Sugar (GEN), Diabetes Mellitus Type 2 in Adults (GEN), Chronic Hypertension (DC) Referrals: Heike Dinh MD [Primary Care Provider] - Prescriptions: Alcohol Antiseptic Pads [Alcohol Pads] 1 each ACHS #200 med..pad Blood Sugar Diagnostic [Glucose Test Strip] 1 each MC ACHS #200 strip Insulin Glargine,Hum.rec.anlog [Basaglar Kwikpen U-100] 15 unit SQ HS #5 insuln.pen Insulin LISPRO [Humalog Kwikpen U-100] 10 unit SQ TIDAC #1 pack Lancets [Ultra Thin Lancets] 1 each MC ACHS #200 each Pen Needle, Diabetic [Insulin Pen Needle] 1 each MC QID #1 pack <Micheal,Quan - Last Filed: 06/05/17 19:01> Date of Encounter: 06/05/17 - Time Spent With Patient Total time spent is greater than 50% in coordination of care (as documented) at patient's floor/unit and/or counseling patient: GI History of Present Illness - Data of Consult Requesting Physician: Citlali Jorge MD - Consult Narrative History of present illness: Ms. Briggs is a 42 year old female - Constitutional Vitals: Temp Pulse Resp BP Pulse Ox 97.6 F 71 15 116/77 99 06/05/17 07:00 06/05/17 07:00 06/05/17 07:00 06/05/17 07:00 06/05/17 07:38 Results - Labs CBC & Chem 7: 06/05/17 05:03 06/05/17 05:03 Labs: Last Result Calcium 8.2 mg/dL (8.6-10.8) L 06/05/17 05:03 Troponin I 0.00 ng/mL (0-0.03) 06/03/17 15:32 Triglycerides 223 mg/dL (< 150) H 06/04/17 05:03 Entire Visit Hgb 13.2 g/dL (11.5-15.4) 06/05/17 05:03 Hct 39.5 % (35.3-44.9) 06/05/17 05:03 Total Bilirubin 2.1 mg/dL (0.2-1.2) H 06/05/17 05:03 AST 798 Units/L (5-34) H 06/05/17 05:03 ALT 871 Units/L (0-55) H 06/05/17 05:03 Lipase 24 Units/L (8-78) 06/04/17 05:03 - ABG ABG results: ABG ABG pH 7.42 pH Units (7.32-7.45) 06/03/17 18:20 ABG pCO2 38 mmHg (35-45) 06/03/17 18:20 ABG pO2 86 mmHg (85-104) 06/03/17 18:20 ABG O2 Saturation 97 % (95-98) 06/03/17 18:20 - Attending Attestation 42-year-old female with acute hepatitis C the patient was discharged before she was seen by me. She is to follow up with GI as an outpatient
--- NOTE | 2017-06-05 14:40 | Discharge Summary ---
Date of Encounter: 06/05/17 Time of Encounter: 10:00 - Discharge Diagnosis (1) Abnormal liver function Priority: Primary Status: Acute (2) Newly diagnosed diabetes Priority: Primary Status: Acute (3) HTN (hypertension) Priority: Secondary Status: Chronic Qualifiers: Hypertension type: essential hypertension Qualified Code(s): I10 - Essential (primary) hypertension (4) DVT prophylaxis Priority: Secondary Status: Acute (5) Hepatitis C Priority: Primary Status: Acute Qualifiers: Viral hepatitis chronicity: acute Hepatic coma status: without hepatic coma Qualified Code(s): B17.10 - Acute hepatitis C without hepatic coma - Discharge Medications Prescriptions: Insulin Glargine,Hum.rec.anlog [Basaglar Kwikpen U-100] 15 unit SQ HS #5 insuln.pen Insulin LISPRO [Humalog Kwikpen U-100] 10 unit SQ TIDAC #1 pack Pen Needle, Diabetic [Insulin Pen Needle] 1 each QID #1 pack Home Medications: Gabapentin [Neurontin] 600 mg PO TID 04/15/16 [History] Metoprolol [Lopressor] 25 mg PO BID 04/15/16 [History] hydroCHLOROthiazide [Hydrochlorothiazide] 25 mg PO DAILY 04/15/16 [History] ALPRAZolam [Xanax 1 MG Tablet] 1 mg PO BID 06/03/17 [History] Buprenorphine HCl/Naloxone HCl [Suboxone 8 mg-2 mg Sl Film] 1 each SL BID [History] Lisinopril 30 mg PO DAILY 06/03/17 [History] Alcohol Antiseptic Pads [Alcohol Pads] 1 each ACHS #200 med..pad 06/05/17 [Rx ] Blood Sugar Diagnostic [Glucose Test Strip] 1 each ACHS #200 strip 06/05/17 [ Rx] Insulin Glargine,Hum.rec.anlog [Basaglar Kwikpen U-100] 15 unit SQ HS #5 insuln.pen 06/05/17 [Rx] Insulin LISPRO [Humalog Kwikpen U-100] 10 unit SQ TIDAC #1 pack 06/05/17 [Rx] Lancets [Ultra Thin Lancets] 1 each ACHS #200 each 06/05/17 [Rx] Pen Needle, Diabetic [Insulin Pen Needle] 1 each MC QID #1 pack 06/05/17 [Rx] Allergies/Adverse Reactions: 3 Allergy/AdvReac Type Severity Reaction Status Date / Time No Known Allergies Allergy Verified 04/14/16 22:45 - Notes to Outpatient Provider 1. Newly diagnosed diabetes. Patient was prescribed with insulin (basal and prandial) and glucose monitoring supplies. Please closely follow up her glucoses and A1c level. Patient may benefit from endocrinology referral. 2. Hep C with elevated ALT and AST, patient will follow with GI. Please follow -up liver function. Date of admission: 06/03/17 20:11 Primary care physician: Heike Dinh, Consults: 06/03/17 21:17 Consult to Nutrition [CONS] Routine Comment: Consulting Provider: NUTRITION Reason for Dietary Consult: MST Score 06/04/17 12:02 Consult to Gas Operation Manager [CONS] Routine Reason for SW Consult: cost of insulin 06/04/17 13:03 Consult to Gastroenterology [CONS] Routine Consulting Provider: Gastroenterology Jina Reason for Consult: Abnormal LFT Call Completed: Yes Discharging clinician: Citlali Jorge Anticipated date of discharge: 06/05/17 - Patient Status Disposition: Home, Self-Care Condition: Good Overall status at discharge: patient is back to baseline - Discharge Instructions Follow Up With: Heike Dinh MD [Primary Care Provider] - - Diet and Activity Activity: increase activity as tolerated Diet: diabetic diet Interval History: HPI: Ms. Briggs is a 42 year old female with medical history of opiate dependence and hypertension who presented to the ER as a referral from her primary care physician for glucosuria and hyperglycemia. Patient denies prior history of diabetes mellitus. She endorses 3 month history of polyuria, polydipsia, an unintentional 15 pound weight loss. She also endorsed a recent episode of streptococcal pharyngitis and rhinitis. She endorsed a family history of diabetes mellitus in her mother. She had gestational diabetes during the of her last child several years ago, after which she had never seen a primary care physician. She denies prior history of liver disease. She also endorsed blurry vision, with more difficulty reading small print, all started at the same time with polyuria and polydipsia. She denies chest pain, she denies difficulty breathing, she denies abdominal pain, no changes in bowel movement. No nausea or vomiting. No leg edema and no neurologic symptoms. Hospital course: Ms. Briggs is a 42 year old female was admitted for newly diagnosed diabetes, abnormal liver function. Patient was placed on IV fluid, basal and sliding scale insulin coverage. After treatment, her glucose level get down. Bedside diabetic education has been done by RN and pharmacy. Patient has a history of gestational diabetes and her know how to use glucometer and self check glucose level. Patient was also found elevated AST and ALT, hepatitis panel has been checked, results shows that she has hepatitis C. GI consult was called and the saw patient, outpatient follow-up with GI was setup. Liver enzyme level is tender down now. Patient denies abdominal pain, nausea, vomiting. Patient will discharge home today and a follow-up with GI and PCP as outpatient. Patient will be benefited to be referred to endocrinology for diabetic management. Patient was educated absolutely no alcohol. Avoid Tylenol, Percocet, [place], or other hepatic toxic medications. Patient was seen and examined. No complaints. Vitals are stable. All the glucose monitoring supplies and insulin were prescribed and patient was taught how to use it. Patient is stable to discharge home and closely follow up with PCP and GI. Time spent discussing smoking cessation with patient: 3 to 10 minutes - Time Spent with Patient Total time spent providing and/or coordinating discharge services: 40 minutes Greater than 30 minutes - Constitutional Vitals: Temp Pulse Resp BP Pulse Ox 97.6 F 71 15 116/77 99 06/05/17 07:00 06/05/17 07:00 06/05/17 07:00 06/05/17 07:00 06/05/17 07:38 General appearance: Present: A&O X 3, pleasant, no acute distress - Head Head exam: Present: atraumatic, normocephalic - Eye Eye exam: Present: PERRL, conjuntiva pink, sclera anicteric Pupils: Present: PERRL - Neck Neck exam general surgery: Present: supple, trachea midline. Absent: lymphadenopathy - Respiratory Respiratory exam: Present: CTAB. Absent: accessory muscle use, rales, rhonchi, wheezes - Cardiovascular Cardiovascular exam: Present: RRR, +S1, +S2. Absent: diastolic murmur, gallop, rubs, systolic murmur - GI/Abdominal GI/Abdominal exam: Present: normal bowel sounds, soft, no peritoneal signs. Absent: distended, tenderness - Extremities Exam Extremities exam: Present: warm, radial pulses palpable and symmetrical. Absent : calf tenderness, cyanotic, pedal edema - Neurological Exam Neurological exam: Present: CN II-XII intact, oriented X3, no focal deficits. Absent: pronater drift, facial droop, speech deficit - Skin Skin exam: Present: dry, intact
[2017-06-09 12:02] LABS: HCV Quant Interpretation DETECTED (Not Detected)
[2017-06-13 07:41] LABS: HCV Genotype by Sequencing 1A OR 1B
== END 2017-06-05 18:08 | disposition home or self-care (01) ==
LOC: 2NENU 15:00 → EMEROO 15:00 → 2NENU 20:45
PROVIDERS: ADMIT Internal Medicine; ATTEND Internal Medicine

== ENCOUNTER 2017-07-02 23:07 | Observation (INO) ==
[2017-07-02] MEDS ORDERED: *HR* Dextrose 50 % in Water (Syg) 50 ML SYRINGE IVP ONE (23:25)
[2017-07-02] MEDS ORDERED: 0.9 % Sodium Chloride 1,000 ML IVC ONE (23:47)
[2017-07-02] MEDS ORDERED: Naloxone 0.4 MG/ML INJ IVP ONE (23:47)
[2017-07-03 00:12] LABS: Bilirubin,Urine Negative (Negative); Blood,Urine Negative (Negative); Clarity,Urine Cloudy (Clear); Color,Urine Yellow (Yellow); Glucose,Urine (UA) 500 mg/dL (Normal); Ketones,Urine Negative (Negative); Leukocyte Esterase,Urine Negative (Negative); Nitrite,Urine Negative (Negative); PH,Urine 6.5 pH Units (5.0-8.0); Protein,Urine Negative (Neg-Trace); Specific Gravity,Urine 1.024 (1.010-1.025)
[2017-07-03 00:15] LABS: Bacteria,Urine None Seen per hpf (None-Few); Hyaline Casts,Urine None Seen per lpf (None-Few); RBC,Urine 0-3 per hpf (0-3); Squamous Epithelial Cell,Urine Many per lpf (None-Few); WBC,Urine 0-3 per hpf (0-3)
[2017-07-03 00:19] LABS: Amphetamine Screen,Urine Positive ng/mL (Cutoff=1000); Barbiturate Screen,Urine Negative ng/mL (Cutoff=200); Benzodiazepines Screen,Urine Positive ng/mL (Cutoff=200); Cannabinoid Screen,Urine Negative ng/mL (Cutoff = 50); Cocaine Screen,Urine Positive ng/mL (Cutoff= 300); Opiate Screen,Urine Negative ng/mL (Cutoff=300); Phencyclidine Screen,Urine Negative ng/mL (Cutoff=25)
--- NOTE | 2017-07-03 00:29 | Emergency Department Note ---
Disposition Clinical Impression: Hypoglycemia, Substance abuse, Altered mental status Disposition: Admitted As Inpatient Condition: Good Time of Disposition: 04:50 Altered Mental Status HPI - General Chief Complaint: ED Altered Mental Status Stated Complaint: hypoglycemia Time Seen by Provider: 07/02/17 23:11 Source: patient, EMS Mode of arrival: EMS Limitations: no limitations Nursing Notes Reviewed: Yes Vital Signs Reviewed: Yes - History of Present Illness HPI Narrative: Patient presents to the ED via EMS and was seen and evaluated immediately upon arrival. Patient reportedly has a newly diagnosed history of diabetes and is on insulin. Reportedly, the patient was having small to mental status from family and had hypoglycemia. Patient was given glucagon and sugar really improved. EMS reports patient's mental status has improved slightly, but still appears sleepy. No injury or preceding events. - Related Data Home Medications Medication Instructions Recorded Confirmed Gabapentin [Neurontin] 600 mg PO TID 04/15/16 06/03/17 Metoprolol [Lopressor] 25 mg PO BID 04/15/16 06/03/17 hydroCHLOROthiazide 25 mg PO DAILY 04/15/16 06/03/17 [Hydrochlorothiazide] ALPRAZolam [Xanax 1 MG Tablet] 1 mg PO BID 06/03/17 06/03/17 Buprenorphine HCl/Naloxone HCl 1 each SL BID 06/03/17 06/03/17 [Suboxone 8 mg-2 mg Sl Film] Lisinopril 30 mg PO DAILY 06/03/17 06/03/17 Previous Rx's Medication Instructions Recorded Alcohol Antiseptic Pads [Alcohol 1 each ACHS #200 med..pad 06/05/17 Pads] Blood Sugar Diagnostic [Glucose 1 each ACHS #200 strip 06/05/17 Test Strip] Insulin Glargine,Hum.rec.anlog 15 unit SQ HS #5 insuln.pen 06/05/17 [Basaglar Kwikpen U-100] Insulin LISPRO [Humalog Kwikpen 10 unit SQ TIDAC #1 pack 06/05/17 U-100] Lancets [Ultra Thin Lancets] 1 each ACHS #200 each 06/05/17 Pen Needle, Diabetic [Insulin Pen 1 each MC QID #1 pack 06/05/17 Needle] Allergies Allergy/AdvReac Type Severity Reaction Status Date / Time No Known Allergies Allergy Verified 04/14/16 22:45 All systems ED: reviewed and negative except as stated. Constitutional: Denies: fever Cardiovascular: Denies: chest pain Gastrointestinal: Denies: vomiting Musculoskeletal: Denies: neck pain Neurological: Denies: headache Past Medical History - Past Medical History Attestation: Yes The following information was validated with the patient. Source: patient, old records reviewed Medical history: Reports: diabetes, hypertension, other Surgical history: Reports: no surgical history Psychiatric history: Reports: no psych history - Social History Smoking Status: Current every day smoker Smokeless Tobacco Status: No Alcohol use: Reports: none Drug use: Reports: IV Drug Use, prescription drug abuse Physical Exam - General Limitations: no limitations General appearance: appears intoxicated, lethargic - Head Head exam: atraumatic, normocephalic, normal inspection, other (Patient has blood smeared on her head. Reportedly from multiple finger stick blood glucose checks, no signs of trauma) - Eye Eye exam: Present: normal appearance, PERRL - ENT ENT exam: normal exam, normal oropharynx, mucous membranes moist - Neck Neck exam: Present: normal inspection, full ROM, trachea midline. Absent: tenderness - Chest Chest inspection: Present: normal inspection, symmetric chest wall rise - Respiratory Respiratory exam: Present: normal lung sounds bilaterally - Cardiovascular Cardiovascular exam: Present: regular rate, normal rhythm, normal heart sounds - Abdominal Exam Abdominal exam: Present: soft, Non-Tender. Absent: tenderness, distention, guarding, rebound, rigidity - Extremities Exam Extremities exam: Present: normal inspection, full ROM. Absent: tenderness, pedal edema - Neurological Exam Neurological exam: Present: alert, oriented X3, other (slow to respond, sleepy, appears to be under the influence ) - Skin Skin exam: Present: warm, dry, intact, normal color Course Course Narrative: Patient presenting with hyperglycemia with new onset of diabetes. Patient blood sugar initially in the 40s. We will give an amp of D50 and reevaluate. Blood sugar has come up. The patient not improving. Family is not present. States patient has a history of IV drug use and pill use. We will send labs, and drug screen, urinalysis, head CT and chest x-ray. Patient is still oriented 3, but is still sleepy. Respirations normal. Nontoxic. - Reevaluation(s) Reevaluation #1: patient ambulatory but still sleepy despite normalizing glucose. patient's mother present and states that the patient does use drugs on the street and IV drugs. Added on a urine drug screen which was positive for benzodiazepines, which would fit the patient's clinical presentation. Patient is arousable and appropriately. No neurological deficits. However, she quickly falls asleep. There is no respiratory depression or vital sign abnormality. I do think that we will need to admit the patient overnight for observation until her suspected benzodiazepine ingestion has worn off. Vital Signs Temperature 98.0 F 07/02/17 23:12 Pulse Rate 78 07/02/17 23:12 Respiratory Rate 16 07/02/17 23:12 Blood Pressure 129/111 07/02/17 23:12 O2 Sat by Pulse Oximetry 97 07/02/17 23:12 Temperature 98.6 F 07/03/17 05:51 Pulse Rate 71 07/03/17 05:51 Respiratory Rate 15 07/03/17 05:51 Blood Pressure 148/89 07/03/17 05:51 O2 Sat by Pulse Oximetry 97 07/03/17 05:51 Oxygen Delivery Oxygen Delivery Room Air Altered Mental Status - Medical Records Medical records reviewed: Yes I reviewed the patient's medical records. - Lab Data Lab results reviewed: Yes I reviewed the patient's lab results. Result diagrams: 07/03/17 00:30 07/03/17 00:30 Lab Results 07/02/17 07/03/17 07/03/17 Range/Units 23:12 00:03 00:03 WBC (4.3-11.1) K/mcL RBC (3.82-4.97) M/mcL Hgb (11.5-15.4) g/dL Hct (35.3-44.9) % MCV (83.0-100.0) fL MCH (28.0-33.3) pg MCHC (31.6-35.5) g/dL RDW (11.5-14.5) % Plt Count (140-400) K/mcL MPV (9.4-12.4) fL Immature Gran % (0-4) % Seg Neutrophils % % Lymphocytes % % Monocytes % % Eosinophils % % Basophils % % Neutrophils # (1.6-8.9) K/mcL Lymphocytes # (0.6-4.6) K/mcL Monocytes # (0.0-1.3) K/mcL Eosinophils # (0.0-0.6) K/mcL Basophils # (0.0-0.2) K/mcL Immature Plt Fraction (1.1-6.1) % Sodium (136-145) mEq/L Potassium (3.5-4.5) mEq/L Chloride (98-109) mEq/L Carbon Dioxide (19-29) mEq/L BUN (7-20) mg/dL Creatinine (0.57-1.11) mg/dL Est GFR ( Amer) (> 60) Est GFR (Non-Af Amer) (> 60) BUN/Creatinine Ratio (6-26) Glucose (70-99) mg/dL POC Glucose 49 L* (58-89) Calculated Osmolality (280-300) Calcium (8.6-10.8) mg/dL Total Bilirubin (0.2-1.2) mg/dL Direct Bilirubin (0.0-0.5) mg/dL Indirect Bilirubin (0.0-1.2) mg/dL AST (5-34) Units/L ALT (0-55) Units/L Alkaline Phosphatase (38-126) Units/L Troponin I (0-0.03) ng/mL Serum Total Protein (6.0-8.3) g/dL Albumin (3.5-5.0) g/dL Globulin (2.4-3.5) g/dL Albumin/Globulin Ratio (1.1-2.2) Urine Color Yellow (Yellow) Urine Clarity Cloudy A (Clear) Urine pH 6.5 (5.0-8.0) pH Units Ur Specific [place] 1.024 (1.010-1.025) Urine Protein Negative (Neg-Trace) mg/dL Urine Glucose (UA) 500 H (Normal) mg/dL Urine Ketones Negative (Negative) mg/dL Urine Blood Negative (Negative) Urine Nitrite Negative (Negative) Urine Bilirubin Negative (Negative) Urine Urobilinogen 4.0 H (Normal) mg/dL Ur Leukocyte Esterase Negative (Negative) Urine Microscopic RBC 0-3 (0-3) per hpf Urine Microscopic WBC 0-3 (0-3) per hpf Ur Squamous Epith Cells Many H (None-Few) per lpf Urine Bacteria None Seen (None-Few) per hpf Hyaline Casts None Seen (None-Few) per lpf Ur Culture Indicated? NO (NO) Urine Opiates Screen Negative (Bjrzrn=172) ng/mL Ur Barbiturates Screen Negative (Eaezpd=868) ng/mL Ur Phencyclidine Scrn Negative (Cutoff=25) ng/mL Ur Amphetamines Screen Positive H (Wcowyf=7629) ng/mL U Benzodiazepines Scrn Positive H (Mlvqas=393) ng/mL Urine Cocaine Screen Positive H (Cutoff= 300) ng/mL U Marijuana (THC) Screen Negative (Cutoff = 50) ng/mL Ethyl Alcohol (0-10) mg/dL 07/03/17 07/03/17 07/03/17 Range/Units 00:28 00:30 00:30 WBC 13.7 H (4.3-11.1) K/mcL RBC 4.58 (3.82-4.97) M/mcL Hgb 14.2 (11.5-15.4) g/dL Hct 41.0 (35.3-44.9) % MCV 89.5 (83.0-100.0) fL MCH 31.0 (28.0-33.3) pg MCHC 34.6 (31.6-35.5) g/dL RDW 14.6 H (11.5-14.5) % Plt Count 323 (140-400) K/mcL MPV 10.0 (9.4-12.4) fL Immature Gran % 0.3 (0-4) % Seg Neutrophils % 71.1 % Lymphocytes % 22.8 % Monocytes % 4.9 % Eosinophils % 0.5 % Basophils % 0.4 % Neutrophils # 9.7 H (1.6-8.9) K/mcL Lymphocytes # 3.1 (0.6-4.6) K/mcL Monocytes # 0.7 (0.0-1.3) K/mcL Eosinophils # 0.1 (0.0-0.6) K/mcL Basophils # 0.1 (0.0-0.2) K/mcL Immature Plt Fraction 4.0 (1.1-6.1) % Sodium 138 (136-145) mEq/L Potassium 3.4 L (3.5-4.5) mEq/L Chloride 105 (98-109) mEq/L Carbon Dioxide 22 (19-29) mEq/L BUN 12 (7-20) mg/dL Creatinine 0.69 (0.57-1.11) mg/dL Est GFR ( Amer) > 60 (> 60) Est GFR (Non-Af Amer) > 60 (> 60) BUN/Creatinine Ratio 17 (6-26) Glucose 129 H (70-99) mg/dL POC Glucose 133 H (58-89) Calculated Osmolality 287 (280-300) Calcium 9.1 (8.6-10.8) mg/dL Total Bilirubin 1.1 (0.2-1.2) mg/dL Direct Bilirubin 0.7 H (0.0-0.5) mg/dL Indirect Bilirubin 0.4 (0.0-1.2) mg/dL AST 19 (5-34) Units/L ALT 15 (0-55) Units/L Alkaline Phosphatase 222 H (38-126) Units/L Troponin I (0-0.03) ng/mL Serum Total Protein 7.5 (6.0-8.3) g/dL Albumin 3.7 (3.5-5.0) g/dL Globulin 3.8 H (2.4-3.5) g/dL Albumin/Globulin Ratio 1.0 L (1.1-2.2) Urine Color (Yellow) Urine Clarity (Clear) Urine pH (5.0-8.0) pH Units Ur Specific [place] (1.010-1.025) Urine Protein (Neg-Trace) mg/dL Urine Glucose (UA) (Normal) mg/dL Urine Ketones (Negative) mg/dL Urine Blood (Negative) Urine Nitrite (Negative) Urine Bilirubin (Negative) Urine Urobilinogen (Normal) mg/dL Ur Leukocyte Esterase (Negative) Urine Microscopic RBC (0-3) per hpf Urine Microscopic WBC (0-3) per hpf Ur Squamous Epith Cells (None-Few) per lpf Urine Bacteria (None-Few) per hpf Hyaline Casts (None-Few) per lpf Ur Culture Indicated? (NO) Urine Opiates Screen (Kacsnu=915) ng/mL Ur Barbiturates Screen (Tncynf=254) ng/mL Ur Phencyclidine Scrn (Cutoff=25) ng/mL Ur Amphetamines Screen (Qvzkms=1556) ng/mL U Benzodiazepines Scrn (Osefyx=136) ng/mL Urine Cocaine Screen (Cutoff= 300) ng/mL U Marijuana (THC) Screen (Cutoff = 50) ng/mL Ethyl Alcohol < 10 (0-10) mg/dL 07/03/17 07/03/17 Range/Units 00:30 02:17 WBC (4.3-11.1) K/mcL RBC (3.82-4.97) M/mcL Hgb (11.5-15.4) g/dL Hct (35.3-44.9) % MCV (83.0-100.0) fL MCH (28.0-33.3) pg MCHC (31.6-35.5) g/dL RDW (11.5-14.5) % Plt Count (140-400) K/mcL MPV (9.4-12.4) fL Immature Gran % (0-4) % Seg Neutrophils % % Lymphocytes % % Monocytes % % Eosinophils % % Basophils % % Neutrophils # (1.6-8.9) K/mcL Lymphocytes # (0.6-4.6) K/mcL Monocytes # (0.0-1.3) K/mcL Eosinophils # (0.0-0.6) K/mcL Basophils # (0.0-0.2) K/mcL Immature Plt Fraction (1.1-6.1) % Sodium (136-145) mEq/L Potassium (3.5-4.5) mEq/L Chloride (98-109) mEq/L Carbon Dioxide (19-29) mEq/L BUN (7-20) mg/dL Creatinine (0.57-1.11) mg/dL Est GFR ( Amer) (> 60) Est GFR (Non-Af Amer) (> 60) BUN/Creatinine Ratio (6-26) Glucose (70-99) mg/dL POC Glucose 128 H (58-89) Calculated Osmolality (280-300) Calcium (8.6-10.8) mg/dL Total Bilirubin (0.2-1.2) mg/dL Direct Bilirubin (0.0-0.5) mg/dL Indirect Bilirubin (0.0-1.2) mg/dL AST (5-34) Units/L ALT (0-55) Units/L Alkaline Phosphatase (38-126) Units/L Troponin I 0.00 (0-0.03) ng/mL Serum Total Protein (6.0-8.3) g/dL Albumin (3.5-5.0) g/dL Globulin (2.4-3.5) g/dL Albumin/Globulin Ratio (1.1-2.2) Urine Color (Yellow) Urine Clarity (Clear) Urine pH (5.0-8.0) pH Units Ur Specific [place] (1.010-1.025) Urine Protein (Neg-Trace) mg/dL Urine Glucose (UA) (Normal) mg/dL Urine Ketones (Negative) mg/dL Urine Blood (Negative) Urine Nitrite (Negative) Urine Bilirubin (Negative) Urine Urobilinogen (Normal) mg/dL Ur Leukocyte Esterase (Negative) Urine Microscopic RBC (0-3) per hpf Urine Microscopic WBC (0-3) per hpf Ur Squamous Epith Cells (None-Few) per lpf Urine Bacteria (None-Few) per hpf Hyaline Casts (None-Few) per lpf Ur Culture Indicated? (NO) Urine Opiates Screen (Fkhvrm=507) ng/mL Ur Barbiturates Screen (Bxkawj=352) ng/mL Ur Phencyclidine Scrn (Cutoff=25) ng/mL Ur Amphetamines Screen (Exbiao=7185) ng/mL U Benzodiazepines Scrn (Bvckcj=468) ng/mL Urine Cocaine Screen (Cutoff= 300) ng/mL U Marijuana (THC) Screen (Cutoff = 50) ng/mL Ethyl Alcohol (0-10) mg/dL - Radiology Data Radiology results reviewed: Yes I reviewed the patient's radiology results. Chest X-Ray 07/02/17 23:48 IMPRESSION: No acute process. D/ / Jovan Salvador MD / Jovan Salvador MD Interpreting Provider: Jovan Salvador MD Head CT 07/02/17 23:49 IMPRESSION: No acute intracranial abnormality. D/ / Jovan Salvador MD / Jovan Salvador MD Interpreting Provider: Jovan Salvador MD - EKG Data EKG attestation: Yes I reviewed and interpreted this EKG. EKG results narrative: Sinus rhythm, rate 74, [place] interval 164, QRS 125, QTC 446, no acute ischemic changes Attestation Statement - Attestation Attestation: I examined this patient and my medical decision-making was reviewed with the Resident Physician, Dr. Guzman. I agree with the documented findings, disposition and treatment plan as described except to the extent set forth below. Pt is a 42 yo wf, hx polysubstance abuse and newly diagnosed dibetic who is on insulin. Pt with reported altered mental status, and family concerned that shortly after taking her insulin, she became hypoglycemia. Pt given glucagon and improved enroute to the ED. On arrival, pt alert, and answering questions, but remains with slurred speech and sleepy. Pt given D50 on arrival. No focal neuro deficits. Pt denies any ETOH/drugs on arrival. I agree with pt's PE findigns as documented. VSS. Pt's mother arrived shortly after pt arrival. Mother reports she has known hx IVDA, poly substance abuse. Will workup as AMS pt. Labs show improving BS, but no improvement in status. CT head/CXR wnl. Remaining labs wnl. Urine shabbir show presence of multiple substance. Will admit pt for further eval/management due to ongoing lethargy. Pt with no resp distress throughout ED course. D/W hosp who accepted pt for admission.
[2017-07-03 00:35] LABS: Basophils # 0.1 K/mcL (0.0-0.2); Basophils % 0.4 %; Eosinophils # 0.1 K/mcL (0.0-0.6); Eosinophils % 0.5 %; Hemoglobin 14.2 g/dL (11.5-15.4); Immature Granulocytes % 0.3 % (0-4); Lymphocytes # 3.1 K/mcL (0.6-4.6); Lymphocytes % 22.8 %; Mean Corpuscular HGB Conc 34.6 g/dL (31.6-35.5); Mean Corpuscular Volume 89.5 fL (83.0-100.0); Monocytes # 0.7 K/mcL (0.0-1.3); Monocytes % 4.9 %; Neutrophils # 9.7 K/mcL (1.6-8.9); Platelet Count 323 K/mcL (140-400); Red Blood Count 4.58 M/mcL (3.82-4.97); Red Cell Distribution Width 14.6 % (11.5-14.5); Segmented Neutrophils % 71.1 %
[2017-07-03 00:49] LABS: Alanine Aminotransferase 15 Units/L (0-55); Albumin 3.7 g/dL (3.5-5.0); Alkaline Phosphatase 222 Units/L (38-126); Aspartate Amino Transferase 19 Units/L (5-34); BUN/Creatinine Ratio 17 (6-26); Bilirubin,Direct 0.7 mg/dL (0.0-0.5); Bilirubin,Indirect 0.4 mg/dL (0.0-1.2); Bilirubin,Total 1.1 mg/dL (0.2-1.2); Blood Urea Nitrogen 12 mg/dL (7-20); Calcium 9.1 mg/dL (8.6-10.8); Carbon Dioxide 22 mEq/L (19-29); Chloride 105 mEq/L (98-109); Globulin 3.8 g/dL (2.4-3.5); Glucose 129 mg/dL (70-99); Osmolality,Calculated 287 (280-300); Potassium 3.4 mEq/L (3.5-4.5); Sodium 138 mEq/L (136-145); Total Protein 7.5 g/dL (6.0-8.3); eGFR For African Americans > 60 (> 60); eGFR For Non-African Americans > 60 (> 60)
[2017-07-03 01:06] LABS: Ethanol < 10 mg/dL (0-10)
[2017-07-03 05:56] VITALS: BP 148/89
[2017-07-03] MEDS ORDERED: Acetaminophen 325 MG TABLET PO PRN (07:46)
[2017-07-03] MEDS ORDERED: Ondansetron 4 MG/2 ML VIAL IVP PRN (07:46)
[2017-07-03] MEDS ORDERED: Naloxone 0.4 MG/ML INJ IVP PRN (07:46)
[2017-07-03] MEDS ORDERED: Dextrose Gel 15 GM PO PRN ×2 (07:48)
[2017-07-03] MEDS ORDERED: D5% in Water 1,000 ML IVC PRN (07:48)
[2017-07-03] MEDS ORDERED: *HR* Dextrose 50 % in Water (Syg) 50 ML SYRINGE IVP PRN (07:48)
--- NOTE | 2017-07-03 07:55 | Internal Med History&Physical ---
Date of Encounter: 07/03/17 Time of Encounter: 07:50 Assessment and Plan (1) Hyperglycemia due to type 2 diabetes mellitus Status: Acute Patient was placed in observation. Insulin was stopped. I initiated hypoglycemia protocol. My plan is to continue to monitor the patient for 24 hours for recurrence of hypoglycemia due to the fact that she takes long-acting insulin. Patient wants to leave the hospital. I advised against that and explained the risks of loss of consciousness, altered mental status, aspiration, pneumonia and sepsis. She demonstrates understanding of these risks as well as the benefits of staying in the hospital. She has decision-making capacity. She signed out AGAINST MEDICAL ADVICE. I provided her with insulin sliding scale instructions. Qualifiers: Diabetes mellitus terminal operations supervisor insulin use: with terminal operations supervisor use Qualified Code( s): E11.65 - Type 2 diabetes mellitus with hyperglycemia; Z79.4 - termite control representative ( current) use of insulin; Z79.4 - termite control representative (current) use of insulin; Z79.4 - assisted (current) use of insulin; Z79.4 - assisted (current) use of insulin (2) Substance abuse Status: Acute Internal Medicine - H&P: HPI Chief complaint: Altered mental status Admitted From: Emergency Dept Plans for Post Hospital Care: Home History of present illness: Ms. Briggs is a 42 year old female with past medical history significant for hypertension and diabetes who was brought by EMS for evaluation of altered mental status. She was found to be hypoglycemic in the field and was given oral glucose and subcutaneous glucagon. In the emergency department she was given IV dextrose and her mental status improved. I have examined her at the bedside. She is awake alert and oriented 3 and answers questions appropriately. She states that she wants to leave the hospital as soon as possible to make it to a doctor's appointment. She is not very forthcoming with information. She states that she takes 10 units of Humalog before meals and she checks her glucose after meals. She takes long-acting insulin at night. Past medical history as above Family history reviewed and found to be noncontributory Social history: Current smoker, history of drug abuse. Assessment: Type 2 diabetes with hypoglycemia, now glucose within normal range. Polysubstance abuse Plan: Patient needs to be observed for 18-24 hours for recurrence of hypoglycemia due to her recent episode of altered mental status secondary to hypoglycemia. I have explained this to the patient. I advised her of the risks of left of consciousness, altered mental status, aspiration, pneumonia if she leaves the hospital prematurely. I advised her to not drive. She states that she does not have a car. Family is driving her to her appointments. Patient understands the stated risks of leaving the hospital and signed out AGAINST MEDICAL ADVICE. She is alert and appropriate and has decision-making capacity. I provided her with Humalog sliding scale instructions and I went over the instructions with her. I explained that it would be beneficial to check her blood glucose before meals and administer insulin sliding scale rather than giving 10 units with each meal. I advised her to follow-up with her primary care physician as soon as possible and to hold long-acting insulin at night for 2 days. Past Med Surg Social Fam HX - Past Medical History Medical history: diabetes, hypertension, other Psychiatric history: no psych history - Past Surgical History Surgical History: appendectomy, cholecystectomy - Social History Smoking Status: Current every day smoker Packs per day: 1/2 Smokeless Tobacco Status: No Alcohol use: none Drug use: IV Drug Use, prescription drug abuse - Family History Mother Hx Family Endocrine Disorder: Yes (DM) Internal Medicine - H&P: Meds Gabapentin [Neurontin] 600 mg PO TID 04/15/16 [History] Metoprolol [Lopressor] 25 mg PO BID 04/15/16 [History] hydroCHLOROthiazide [Hydrochlorothiazide] 25 mg PO DAILY 04/15/16 [History] ALPRAZolam [Xanax 1 MG Tablet] 1 mg PO BID 06/03/17 [History] Buprenorphine HCl/Naloxone HCl [Suboxone 8 mg-2 mg Sl Film] 1 each SL BID [History] Lisinopril 30 mg PO DAILY 06/03/17 [History] Alcohol Antiseptic Pads [Alcohol Pads] 1 each TP ACHS #200 med..pad 06/05/17 [Rx ] Blood Sugar Diagnostic [Glucose Test Strip] 1 each MC ACHS #200 strip 06/05/17 [ Rx] Insulin Glargine,Hum.rec.anlog [Basaglar Kwikpen U-100] 15 unit SQ HS #5 insuln.pen 06/05/17 [Rx] Insulin LISPRO [Humalog Kwikpen U-100] 10 unit SQ TIDAC #1 pack 06/05/17 [Rx] Lancets [Ultra Thin Lancets] 1 each ACHS #200 each 06/05/17 [Rx] Pen Needle, Diabetic [Insulin Pen Needle] 1 each QID #1 pack 06/05/17 [Rx] 3 Allergy/AdvReac Type Severity Reaction Status Date / Time No Known Allergies Allergy Verified 04/14/16 22:45 All Systems PM: A 10-system review of systems was performed and is negative for pertinent findings except as documented above in the HPI. - Constitutional Vitals: Temp Pulse Resp BP Pulse Ox 98.6 F 71 15 148/89 97 07/03/17 05:51 07/03/17 05:51 07/03/17 05:51 07/03/17 05:51 07/03/17 05:51 General appearance: Present: cooperative, A&O X 3, no acute distress - Respiratory Respiratory exam: Present: CTAB. Absent: accessory muscle use, rales, rhonchi, wheezes - Cardiovascular Cardiovascular exam: Present: RRR, +S1, +S2. Absent: diastolic murmur, gallop, rubs, systolic murmur Internal Med - H&P Results - Labs CBC & Chem 7: 07/03/17 00:30 07/03/17 00:30
[2017-07-03] MEDS ORDERED: Insulin LISPRO 300 UNITS/3 ML VIAL SQ SCH ×2 (08:00→21:00)
[2017-07-03] MEDS ORDERED: 0.9 % Sodium Chloride 1,000 ML IVC SCH (08:00)
--- NOTE | 2017-07-03 10:59 | Discharge Summary ---
Date of Encounter: 07/03/17 Time of Encounter: 10:57 - Discharge Diagnosis (1) Hyperglycemia due to type 2 diabetes mellitus Priority: Primary Status: Acute Qualifiers: Diabetes mellitus alf insulin use: with terminologist use Qualified Code( s): E11.65 - Type 2 diabetes mellitus with hyperglycemia; Z79.4 - terminologist ( current) use of insulin; Z79.4 - terminologist (current) use of insulin; Z79.4 - terminologist (current) use of insulin; Z79.4 - residential (current) use of insulin (2) Substance abuse Priority: Secondary Status: Acute - Discharge Medications Home Medications: Gabapentin [Neurontin] 600 mg PO TID 04/15/16 [History] Metoprolol [Lopressor] 25 mg PO BID 04/15/16 [History] hydroCHLOROthiazide [Hydrochlorothiazide] 25 mg PO DAILY 04/15/16 [History] ALPRAZolam [Xanax 1 MG Tablet] 1 mg PO BID 06/03/17 [History] Buprenorphine HCl/Naloxone HCl [Suboxone 8 mg-2 mg Sl Film] 1 each SL BID [History] Lisinopril 30 mg PO DAILY 06/03/17 [History] Alcohol Antiseptic Pads [Alcohol Pads] 1 each ACHS #200 med..pad 06/05/17 [Rx ] Blood Sugar Diagnostic [Glucose Test Strip] 1 each ACHS #200 strip 06/05/17 [ Rx] Insulin Glargine,Hum.rec.anlog [Basaglar Kwikpen U-100] 15 unit SQ HS #5 insuln.pen 06/05/17 [Rx] Insulin LISPRO [Humalog Kwikpen U-100] 10 unit SQ TIDAC #1 pack 06/05/17 [Rx] Lancets [Ultra Thin Lancets] 1 each ACHS #200 each 06/05/17 [Rx] Pen Needle, Diabetic [Insulin Pen Needle] 1 each QID #1 pack 06/05/17 [Rx] Allergies/Adverse Reactions: 3 Allergy/AdvReac Type Severity Reaction Status Date / Time No Known Allergies Allergy Verified 04/14/16 22:45 Date of admission: 07/03/17 05:01 Primary care physician: Heike Dinh, - Patient Status Disposition: Left Against Medical Advice Condition: Good Functional capacity at discharge: independent ambulation Overall status at discharge: patient is back to baseline - Discharge Instructions Follow Up With: Heike Dinh MD [Primary Care Provider] - Additional Instructions: Do not drive. - Diet and Activity Activity: increase activity as tolerated Diet: diabetic diet Hospital course: Ms. Briggs is a 42 year old female with a history of insulin-dependent diabetes was brought to the hospital for altered mental status. She was found to be hypoglycemic. This was corrected with IV dextrose. She was placed in observation. Her blood glucose normalized. At the time of my interview she was awake alert oriented and appropriate. She decided to sign out and leave the hospital AGAINST MEDICAL ADVICE. - Time Spent with Patient Total time spent providing and/or coordinating discharge services: - Constitutional Vitals: Temp Pulse Resp BP Pulse Ox 98.6 F 71 15 148/89 97 07/03/17 05:51 07/03/17 05:51 07/03/17 05:51 07/03/17 05:51 07/03/17 05:51 General appearance: Present: cooperative, A&O X 3, no acute distress - Cardiovascular Cardiovascular exam: Present: RRR, +S1, +S2. Absent: diastolic murmur, gallop, rubs, systolic murmur
--- NOTE | 2017-07-03 15:42 | Electrocardiograph Report ---
[address] [address] Test Date: 2017-07-02 Pat Name: Sis Briggs Department: 103 Room: 3A11 Gender: F [employer] Officer: MURIEL : 1975 Requested By: Anjel Guzman Order Number: [id number] Reading MD: Rodrigo Cevallos Measurements Intervals [place] Rate: 74 P: 24 MS: 164 QRS: 16 QRSD: 125 T: 38 QT: 419 QTc: 446 Interpretive Statements SINUS RHYTHM POSSIBLE RIGHT VENTRICULAR CONDUCTION DELAY Electronically Signed On 07-03-2017 15:40:38 EDT by Rodrigo Cevallos
== END 2017-07-03 08:30 | disposition left against medical advice (07) ==
LOC: EMEROO 23:07 → 3ANU 23:07
PROVIDERS: ADMIT Internal Medicine; ATTEND Internal Medicine

== ENCOUNTER 2019-03-15 18:43 | Observation (INO) ==
[2019-03-15 19:51] LABS: Basophils # 0.1 K/mcL (0.0-0.2); Basophils % 0.5 %; Eosinophils # 0.1 K/mcL (0.0-0.6); Eosinophils % 1.1 %; Hematocrit 40.5 % (35.3-44.9); Hemoglobin 14.1 g/dL (11.5-15.4); Immature Granulocytes % 0.4 % (0-4); Lymphocytes # 3.6 K/mcL (0.6-4.6); Lymphocytes % 30.1 %; Mean Corpuscular HGB Conc 34.8 g/dL (31.6-35.5); Mean Corpuscular Hemoglobin 29.6 pg (28.0-33.3); Mean Corpuscular Volume 85.1 fL (83.0-100.0); Mean Platelet Volume 10.7 fL (9.4-12.4); Monocytes # 0.6 K/mcL (0.0-1.3); Monocytes % 5.4 %; Neutrophils # 7.4 K/mcL (1.6-8.9); Platelet Count 199 K/mcL (140-400); Red Blood Count 4.76 M/mcL (3.82-4.97); Red Cell Distribution Width 12.2 % (11.5-14.5); Segmented Neutrophils % 62.5 %; White Blood Count 11.8 K/mcL (4.3-11.1)
[2019-03-15 20:13] LABS: VBG PH 7.44 pH Units (7.32-7.42)
[2019-03-15 20:27] LABS: Alanine Aminotransferase 166 Units/L (7-52); Albumin 3.4 g/dL (3.5-5.7); Alkaline Phosphatase 380 Units/L (34-104); Aspartate Amino Transferase 110 Units/L (13-39); BUN/Creatinine Ratio 17 (6-26); Bilirubin,Direct 0.1 mg/dL (0.0-0.2); Bilirubin,Indirect 0.6 mg/dL (0.0-1.2); Bilirubin,Total 0.7 mg/dL (0.3-1.0); Blood Urea Nitrogen 12 mg/dL (6-20); Carbon Dioxide 28 mEq/L (23-29); Chloride 89 mEq/L (98-107); Globulin 3.5 g/dL (2.4-3.5); Glucose 788 mg/dL (70-105); Lipase 72 Units/L (11-82); Osmolality,Calculated 296 (280-300); Sodium 124 mEq/L (136-145); Total Protein 6.9 g/dL (6.4-8.9); eGFR For African Americans > 60 (> 60); eGFR For Non-African Americans > 60 (> 60)
[2019-03-15] MEDS ORDERED: 0.9 % Sodium Chloride 1,000 ML IVC ONE ×2 (20:28→20:29)
[2019-03-15] MEDS ORDERED: Insulin Human Regular 10 UNIT in 0.9 % Sodium Chloride 10 ML IV ONE (20:29)
[2019-03-15 20:44] LABS: Bilirubin,Urine Negative (Negative); Blood,Urine Negative (Negative); Clarity,Urine Clear (Clear); Color,Urine Yellow (Yellow); Glucose,Urine (UA) >=1000 mg/dL (Normal); Ketones,Urine Negative (Negative); Leukocyte Esterase,Urine Negative (Negative); Nitrite,Urine Negative (Negative); Protein,Urine Negative (Neg-Trace); Specific Gravity,Urine > 1.030 (1.010-1.025); Urobilinogen,Urine Normal (Normal)
--- NOTE | 2019-03-15 21:10 | Emergency Department Note ---
Disposition Clinical Impression: Hyperglycemia Hyperglycemia due to type 2 diabetes mellitus Qualifiers: Diabetes mellitus group home insulin use: without group home use Qualified Co de(s): E11.65 - Type 2 diabetes mellitus with hyperglycemia Disposition: Admitted As Inpatient Condition: Fair Time of Disposition: 21:00 General Adult HPI - General Chief complaint: ED General Medical Stated complaint: high blood sugar Time Seen by Provider: 03/15/19 19:02 Source: patient Limitations: no limitations Nursing Notes Reviewed: Yes Vital Signs Reviewed: Yes - History of Present Illness HPI Narrative: 43-year-old female presents emergency Department with concerns of elevated blood sugars, weakness, fatigue. Patient states she has felt nauseated over the past few days. She reports urinating frequently. She denies recent trauma. Denies chest pain, shortness breath, palpitations, syncope, hematochezia, melena. Patient has a history of type 2 diabetes which is insulin-dependent. She does use IV drugs, last use was methamphetamines 4 days ago. Mother convinced her to be evaluated in the emergency department today because her glucose reading at home was reading "high". Patient states that her blood sugars have been reading "high" for the past 2 weeks. She does report that her symptoms have worsened recently. Pain Scale: 5 - Related Data Home Medications Medication Instructions Recorded Confirmed Liraglutide [Victoza 2-Alfredo] 1.6 units SQ DAILY 03/15/19 03/15/19 Previous Rx's Medication Instructions Recorded Alcohol Antiseptic Pads [Alcohol 1 each ACHS #200 med..pad 06/05/17 Pads] Blood Sugar Diagnostic [Glucose 1 each ACHS #200 strip 06/05/17 Test Strip] Lancets [Ultra Thin Lancets] 1 each ACHS #200 each 06/05/17 Pen Needle, Diabetic [Insulin Pen 1 each QID #1 pack 06/05/17 Needle] Allergies Allergy/AdvReac Type Severity Reaction Status Date / Time No Known Allergies Allergy Verified 03/15/19 19:46 All systems ED: reviewed and negative except as stated. Review of Systems: As Per HPI Past Medical History - Past Medical History Attestation: Yes The following information was validated with the patient. Source: patient Medical history: Reports: diabetes, hypertension, other Surgical history: Reports: no surgical history Psychiatric history: Reports: no psych history - Social History Smoking Status: Current every day smoker Smokeless Tobacco Status: No Alcohol use: Reports: none Drug use: Reports: methamphetamine, IV Drug Use, prescription drug abuse, other Physical Exam General: Alert and in no acute distress Skin: Warm, dry, intact Head: Normocephalic and atraumatic Neck: Supple, trachea midline and no tenderness Cardiovascular: RRR, no murmur, normal perfusion Respiratory: CTAB, no wheezing, cough, or respiratory distress Musculoskeletal: Normal strength, no tenderness, swelling or deformity GI: Soft, nontender, nondistended. Bowel sounds present Neuro: A&O to person, place, time and situation. No focal deficits noted on exam Psychiatric: cooperative and appropriate mood and affect. - General Limitations: no limitations General appearance: alert, in no apparent distress Course Vital Signs Temperature 97.7 F 03/15/19 18:46 Pulse Rate 8 03/15/19 18:46 Respiratory Rate 16 03/15/19 18:46 Blood Pressure 151/94 03/15/19 18:46 O2 Sat by Pulse Oximetry 98 03/15/19 18:46 Temperature 98.8 F 03/16/19 04:12 Pulse Rate 75 03/16/19 04:12 Respiratory Rate 16 03/16/19 04:12 Blood Pressure 123/73 03/16/19 04:12 O2 Sat by Pulse Oximetry 95 03/16/19 04:12 Oxygen Delivery Oxygen Delivery Room Air Medical Decision Making - MDM Narrative Medical decision making narrative: Patient has significantly elevated glucose emergency department. She was given insulin IV fluids admitted to the hospital for further care and evaluation. Patient reports she has not taken her insulin at home over the past 2 months. She reports she does not have a primary care physician to prescribe the medications. - Medical Records Medical records reviewed: Yes I reviewed the patient's medical records. - Lab Data Lab results reviewed: Yes I reviewed the patient's lab results. Result diagrams: 03/16/19 00:12 03/16/19 00:12 Lab Results 03/15/19 03/15/19 03/15/19 Range/Units 18:51 18:51 19:29 WBC 11.8 H (4.3-11.1) K/mcL RBC 4.76 (3.82-4.97) M/mcL Hgb 14.1 (11.5-15.4) g/dL Hct 40.5 (35.3-44.9) % MCV 85.1 (83.0-100.0) fL MCH 29.6 (28.0-33.3) pg MCHC 34.8 (31.6-35.5) g/dL RDW 12.2 (11.5-14.5) % Plt Count 199 (140-400) K/mcL MPV 10.7 (9.4-12.4) fL Immature Gran % 0.4 (0-4) % Seg Neutrophils % 62.5 % Lymphocytes % 30.1 % Monocytes % 5.4 % Eosinophils % 1.1 % Basophils % 0.5 % Neutrophils # 7.4 (1.6-8.9) K/mcL Lymphocytes # 3.6 (0.6-4.6) K/mcL Monocytes # 0.6 (0.0-1.3) K/mcL Eosinophils # 0.1 (0.0-0.6) K/mcL Basophils # 0.1 (0.0-0.2) K/mcL VBG pH (7.32-7.42) pH Units Sodium (136-145) mEq/L Potassium (3.5-5.1) mEq/L Chloride (98-107) mEq/L Carbon Dioxide (23-29) mEq/L BUN (6-20) mg/dL Creatinine (0.60-1.20) mg/dL Est GFR ( Amer) (> 60) Est GFR (Non-Af Amer) (> 60) BUN/Creatinine Ratio (6-26) Glucose (70-105) mg/dL POC Glucose (70-99) mg/dL Calculated Osmolality (280-300) Calcium (8.6-10.3) mg/dL Total Bilirubin (0.3-1.0) mg/dL Direct Bilirubin (0.0-0.2) mg/dL Indirect Bilirubin (0.0-1.2) mg/dL AST (13-39) Units/L ALT (7-52) Units/L Alkaline Phosphatase (34-104) Units/L Serum Total Protein (6.4-8.9) g/dL Albumin (3.5-5.7) g/dL Globulin (2.4-3.5) g/dL Albumin/Globulin Ratio (1.1-2.2) Lipase (11-82) Units/L Beta-Hydroxybutyric Acd (0.02-0.27) mmol/L Urine Color Yellow (Yellow) Urine Clarity Clear (Clear) Urine pH 6.0 (5.0-8.0) pH Units Ur Specific [place] > 1.030 H (1.010-1.025) Urine Protein Negative (Neg-Trace) mg/dL Urine Glucose (UA) >=1000 H (Normal) mg/dL Urine Ketones Negative (Negative) mg/dL Urine Blood Negative (Negative) Urine Nitrite Negative (Negative) Urine Bilirubin Negative (Negative) Urine Urobilinogen Normal (Normal) mg/dL Ur Leukocyte Esterase Negative (Negative) Ur Culture Indicated? NO (NO) Urine Test Negative (Negative) 03/15/19 03/15/19 03/15/19 Range/Units 19:29 19:29 20:09 WBC (4.3-11.1) K/mcL RBC (3.82-4.97) M/mcL Hgb (11.5-15.4) g/dL Hct (35.3-44.9) % MCV (83.0-100.0) fL MCH (28.0-33.3) pg MCHC (31.6-35.5) g/dL RDW (11.5-14.5) % Plt Count (140-400) K/mcL MPV (9.4-12.4) fL Immature Gran % (0-4) % Seg Neutrophils % % Lymphocytes % % Monocytes % % Eosinophils % % Basophils % % Neutrophils # (1.6-8.9) K/mcL Lymphocytes # (0.6-4.6) K/mcL Monocytes # (0.0-1.3) K/mcL Eosinophils # (0.0-0.6) K/mcL Basophils # (0.0-0.2) K/mcL VBG pH 7.44 H (7.32-7.42) pH Units Sodium 124 L (136-145) mEq/L Potassium 4.0 (3.5-5.1) mEq/L Chloride 89 L (98-107) mEq/L Carbon Dioxide 28 (23-29) mEq/L BUN 12 (6-20) mg/dL Creatinine 0.72 (0.60-1.20) mg/dL Est GFR ( Amer) > 60 (> 60) Est GFR (Non-Af Amer) > 60 (> 60) BUN/Creatinine Ratio 17 (6-26) Glucose 788 H* (70-105) mg/dL POC Glucose (70-99) mg/dL Calculated Osmolality 296 (280-300) Calcium 9.0 (8.6-10.3) mg/dL Total Bilirubin 0.7 (0.3-1.0) mg/dL Direct Bilirubin 0.1 (0.0-0.2) mg/dL Indirect Bilirubin 0.6 (0.0-1.2) mg/dL AST 110 H (13-39) Units/L ALT 166 H (7-52) Units/L Alkaline Phosphatase 380 H (34-104) Units/L Serum Total Protein 6.9 (6.4-8.9) g/dL Albumin 3.4 L (3.5-5.7) g/dL Globulin 3.5 (2.4-3.5) g/dL Albumin/Globulin Ratio 1.0 L (1.1-2.2) Lipase 72 (11-82) Units/L Beta-Hydroxybutyric Acd 0.23 (0.02-0.27) mmol/L Urine Color (Yellow) Urine Clarity (Clear) Urine pH (5.0-8.0) pH Units Ur Specific [place] (1.010-1.025) Urine Protein (Neg-Trace) mg/dL Urine Glucose (UA) (Normal) mg/dL Urine Ketones (Negative) mg/dL Urine Blood (Negative) Urine Nitrite (Negative) Urine Bilirubin (Negative) Urine Urobilinogen (Normal) mg/dL Ur Leukocyte Esterase (Negative) Ur Culture Indicated? (NO) Urine Test (Negative) 03/15/19 03/15/19 Range/Units 21:37 21:39 WBC (4.3-11.1) K/mcL RBC (3.82-4.97) M/mcL Hgb (11.5-15.4) g/dL Hct (35.3-44.9) % MCV (83.0-100.0) fL MCH (28.0-33.3) pg MCHC (31.6-35.5) g/dL RDW (11.5-14.5) % Plt Count (140-400) K/mcL MPV (9.4-12.4) fL Immature Gran % (0-4) % Seg Neutrophils % % Lymphocytes % % Monocytes % % Eosinophils % % Basophils % % Neutrophils # (1.6-8.9) K/mcL Lymphocytes # (0.6-4.6) K/mcL Monocytes # (0.0-1.3) K/mcL Eosinophils # (0.0-0.6) K/mcL Basophils # (0.0-0.2) K/mcL VBG pH (7.32-7.42) pH Units Sodium (136-145) mEq/L Potassium (3.5-5.1) mEq/L Chloride (98-107) mEq/L Carbon Dioxide (23-29) mEq/L BUN (6-20) mg/dL Creatinine (0.60-1.20) mg/dL Est GFR ( Amer) (> 60) Est GFR (Non-Af Amer) (> 60) BUN/Creatinine Ratio (6-26) Glucose (70-105) mg/dL POC Glucose 480 H* 478 H* (70-99) mg/dL Calculated Osmolality (280-300) Calcium (8.6-10.3) mg/dL Total Bilirubin (0.3-1.0) mg/dL Direct Bilirubin (0.0-0.2) mg/dL Indirect Bilirubin (0.0-1.2) mg/dL AST (13-39) Units/L ALT (7-52) Units/L Alkaline Phosphatase (34-104) Units/L Serum Total Protein (6.4-8.9) g/dL Albumin (3.5-5.7) g/dL Globulin (2.4-3.5) g/dL Albumin/Globulin Ratio (1.1-2.2) Lipase (11-82) Units/L Beta-Hydroxybutyric Acd (0.02-0.27) mmol/L Urine Color (Yellow) Urine Clarity (Clear) Urine pH (5.0-8.0) pH Units Ur Specific [place] (1.010-1.025) Urine Protein (Neg-Trace) mg/dL Urine Glucose (UA) (Normal) mg/dL Urine Ketones (Negative) mg/dL Urine Blood (Negative) Urine Nitrite (Negative) Urine Bilirubin (Negative) Urine Urobilinogen (Normal) mg/dL Ur Leukocyte Esterase (Negative) Ur Culture Indicated? (NO) Urine Test (Negative) - Radiology Data Radiology results reviewed: Yes I reviewed the patient's radiology results.
--- NOTE | 2019-03-15 23:34 | Internal Med History&Physical ---
<Ziggy Zimmerman - Last Filed: 03/16/19 00:37> Date of Encounter: 03/16/19 Time of Encounter: 00:37 Internal Medicine - H&P: HPI Chief complaint: Fatigue Admitted From: Emergency Dept Plans for Post Hospital Care: Home History of present illness: Ms. Briggs is a 43 year old female with past medical history of type 2 diabetes presents the emergency department with complaint of fatigue 3 days. Patient states that she has not been taking her medications as prescribed. Her only home medications including victoza. She states that she has been on this medication for the past 6 months however has had consistently elevated glucose readings in the 400s when she does take her blood sugars. She admits to not taking her blood sugars frequently. She also states that her PCP has retired and has unable to get refills. She has also been experiencing symptoms of polyuria, polyphagia, polydipsia. She denies any symptoms of fevers, chills, chest pain, shortness of breath, nausea, vomiting, hematuria/urgency/frequency, changes in bowel movements. She admits some tingling in her hands but denies a ny further numbness or tingling in upper or lower extremities. In the emergency department, Vital signs were unremarkable. Laboratory results were significant for a mild leukocytosis of 11.8, ABG pH of 7.44, sodium 124, chloride 89, glucose of 788 and mild elevation in her LFTs in the 100s. Anion gap is Going to be 7 and lipase was within normal limits at 72, beta hydroxybutyric acid normal at 0.23. Urinalysis showed evidence of glucose but no evidence of infection. Chest x-ray shows no acute process. At time of interview, patient symptoms have improved. She is awake and alert and states that her fatigue is better. She is thirsty and has an appetite. Past medical history: Type 2 diabetes 2 years. Past surgical history: Appendectomy, cholecystectomy Social history: Current one half pack per day smoker, denies alcohol use, admits to methamphetamine use with most recent of 1 week ago. Family history: Patient denies Past Med Surg Social Fam HX - Past Medical History Medical history: diabetes, hypertension, other Psychiatric history: no psych history - Past Surgical History Surgical History: no surgical history - Social History Smoking Status: Current every day smoker Smokeless Tobacco Status: No Alcohol use: none Drug use: methamphetamine, IV Drug Use, prescription drug abuse, other - Family History Mother Hx Family Endocrine Disorder: Yes (DM) Internal Medicine - H&P: Meds Alcohol Antiseptic Pads [Alcohol Pads] 1 each ACHS #200 med..pad 06/05/17 [Rx] Blood Sugar Diagnostic [Glucose Test Strip] 1 each ACHS #200 strip 06/05/17 [Rx] Lancets [Ultra Thin Lancets] 1 each ACHS #200 each 06/05/17 [Rx] Pen Needle, Diabetic [Insulin Pen Needle] 1 each QID #1 pack 06/05/17 [Rx] Liraglutide [Victoza 2-Alfredo] 1.6 units SQ DAILY 03/15/19 [History] Allergy/AdvReac Type Severity Reaction Status Date / Time No Known Allergies Allergy Verified 03/15/19 19:46 All Systems PM: A 10-system review of systems was performed and is negative for pertinent findings except as documented above in the HPI. Review of systems: - Constitutional: Denies fevers, chills, weight loss, generalized fatigue - Head/Neck: Denies NIÑO, neck stiffness - EENT: Denies vision changes/blurriness, upper respiratory symptoms - CVS: Denies chest pain, palpitations, FREITAS, orthopnea, edema, PND, - Pulm: Denies SOB, cough, sputum, hematemesis, wheezing - GI: Denies abdominal pain, anorexia, nausea, vomiting, diarrhea, constipation, melena - : Denies dysuria, increased frequency, urgency, hematuria, - Endo: Admits to polyuria, polyphagia, polydipsia - MSK: Denies joint pain, limited ROM - Skin: Denies rashes, ulcers, color changes, - Neuro: Denies NIÑO, paresthesias, focal deficits, ataxia, - Constitutional Vitals: Temp Pulse Resp BP Pulse Ox 97.7 F 74 20 112/76 100 03/15/19 18:46 03/15/19 22:04 03/15/19 22:04 03/15/19 22:04 03/15/19 22:04 Exam: Gen.: Vitals noted. No acute distress. AAOx3, resting comfortably in bed. HEENT: PERRL/EOMI, oropharynx clear, Normocephalic, atraumatic, dry mucous membranes Cardiac: RRR, no murmur, +S1/S2, No BLE edema Pulmonary: CTA bilaterally, no wheezes, rales or rhonchi, equal chest expansion, unlabored breathing Abdomen: soft, nontender, BS noted, no guarding, no palpable HSM Skin: warm and dry, no visible lesions. Tattoos noted MSK: ROM intact, no joint swelling noted, gait no assessed while in bed. Non tender calf or clubbing Neuro: A&Ox3, moves all extremities, no focal deficits, sensation intact, cranial nerves grossly intact Psych: Appropriate mood and behavior, AOx3 Internal Med - H&P Results - Labs CBC & Chem 7: 03/16/19 00:12 03/15/19 19:29 Labs: Short CBC 03/15/19 Range/Units 19:29 WBC 11.8 H (4.3-11.1) K/mcL Hgb 14.1 (11.5-15.4) g/dL Hct 40.5 (35.3-44.9) % Plt Count 199 (140-400) K/mcL Neutrophils # 7.4 (1.6-8.9) K/mcL BMP 03/15/19 19:29 Sodium 124 L Potassium 4.0 Chloride 89 L Carbon Dioxide 28 BUN 12 Creatinine 0.72 Glucose 788 H* Calcium 9.0 Liver Function 03/15/19 Range/Units 19:29 Total Bilirubin 0.7 (0.3-1.0) mg/dL Direct Bilirubin 0.1 (0.0-0.2) mg/dL AST 110 H (13-39) Units/L ALT 166 H (7-52) Units/L Alkaline Phosphatase 380 H (34-104) Units/L Albumin 3.4 L (3.5-5.7) g/dL Urine 03/15/19 Range/Units 18:51 Urine Color Yellow (Yellow) Urine Clarity Clear (Clear) Urine pH 6.0 (5.0-8.0) pH Units Ur Specific [place] > 1.030 H (1.010-1.025) Urine Protein Negative (Neg-Trace) mg/dL Urine Glucose (UA) >=1000 H (Normal) mg/dL - ABG Interpretation ABG results: 03/15/19 20:09 VBG pH 7.44 H - Impressions ITS Impressions Chest X-Ray 03/15/19 20:28 IMPRESSION: No acute process. D/ / Yaw Grace MD / Yaw Grace MD Interpreting Provider: Yaw Grace MD - Assessment and Plan (1) Hyperglycemia due to type 2 diabetes mellitus Current Visit: Yes Status: Chronic Assessment and plan: - Patient is known type II diabetic, diagnosis for the past 2 years - She does admit to noncompliance on medication due to change in PCP as well as she felt her regimen was not working - Current medication is only victoza. - No anion gap (7), beta hydroxybutyric acid within normal limits, osm of 296 - Does not meet criteria for HHS or DKA. - BS on presentation of 788, has improved to 351 after 10 units insulin and 2L NS - Pseudohyponatremia present Plan - Will repeat BMP now to assess K, most recently 4.0 - Start moderate SSI with 14 units basal QHS - Start ADA diet. - Continue Fluids at 125/hr - Consult SW for non compliance and drug use. - Would benefit from diabetes education as outpatient. Qualifiers: Diabetes mellitus custodial insulin use: without custodial use Qualified Code(s): E11.65 - Type 2 diabetes mellitus with hyperglycemia (2) Transaminitis Current Visit: Yes Status: Acute Assessment and plan: - Noted mild elevation of AST, ALT and alkaline phosphatase at 110, 116, 380 respectively - Patient does have a history of hepatitis C per chart review as well as drug use - Suspect this is secondary to either fatty liver disease versus viral hepatitis - Patient has no symptoms at this time Plan - We will obtain liver ultrasound - Hepatitis panel - We will trend LFTs in the morning (3) Hyponatremia Current Visit: Yes Status: Acute Assessment and plan: Noted at 124 Likely secondary to hyperglycemia We will continue monitor and correct hyperglycemia as above (4) HTN (hypertension) Current Visit: Yes Status: Chronic Assessment and plan: Per patient history, she was told the past that she has high blood pressure but has stopped taking her medication because she felt it did not help Patient is normotensive upon presentation, will continue monitor Qualifiers: Hypertension type: essential hypertension Qualified Code(s): I10 - Essential (primary) hypertension (5) Hepatitis C Current Visit: Yes Status: Chronic Assessment and plan: - Per record review, patient did test positive for hepatitis C in 2017 - Unclear if patient has undergone treatment however given her history of drug use, we will also test for hepatitis A and B Qualifiers: Viral hepatitis chronicity: chronic Hepatic coma status: without hepatic coma Qualified Code(s): B18.2 - Chronic viral hepatitis C (6) DVT prophylaxis Current Visit: Yes Status: Acute Assessment and plan: Subcutaneous heparin - Time Spent With Patient Total time spent is greater than 50% in coordination of care (as documented) at patient's floor/unit and/or counseling patient: <Beka Nash - Last Filed: 03/16/19 03:23> Date of Encounter: 03/16/19 Time of Encounter: 02:00 All Systems PM: A 10-system review of systems was performed and is negative for pertinent findings except as documented above in the HPI. - Constitutional Constitutional: weight loss, no chills, no fever(s) - EENT Eyes: blurry vision Ears: no ear pain, no tinnitus Nose, mouth and throat: no nasal congestion, no sore throat - Cardiovascular Cardiovascular ROS IM: no chest pain, no dyspnea - Respiratory Respiratory: no cough, no chest congestion - Gastrointestinal Gastrointestinal: no abdominal pain, no diarrhea, no vomiting - Genitourinary Genitourinary: no dysuria, no hematuria - Integumentary Integumentary IM: no rash, no jaundice - Psychiatric Psychiatric: no anxiety, no depression - Endocrine Endocrine IM: polydipsia, polyphagia, polyuria, no cold intolerance, no heat intolerance - Allergic/Immunologic Allergic/Immunologic: no GI upset with certain foods - Constitutional Vitals: Temp Pulse Resp BP Pulse Ox 98.9 F 67 16 118/73 95 03/15/19 23:56 03/15/19 23:56 03/15/19 23:56 03/15/19 23:56 03/15/19 23:56 General appearance: Present: cooperative, A&O X 3, pleasant, no acute distress - Head Head exam: Present: normal inspection - Eye Eye exam: Present: PERRL. Absent: scleral icterus - ENT ENT exam: Present: mucous membranes dry, normal exam - Neck Neck exam general surgery: Present: full ROM, supple, trachea midline - Respiratory Respiratory exam: Present: CTAB. Absent: chest wall tenderness, rales, rhonchi, wheezes - Cardiovascular Cardiovascular exam: Present: RRR, +S1, +S2. Absent: diastolic murmur, systolic murmur - GI/Abdominal GI/Abdominal exam: Present: normal bowel sounds, soft. Absent: hepatomegaly, mass, splenomegaly, tenderness - Extremities Exam Extremities exam: Present: full ROM, warm, radial pulses palpable and symmetrical. Absent: calf tenderness - Back Exam Back exam: Absent: CVA tenderness (L), CVA tenderness (R) - Neurological Exam Neurological exam: Present: alert, CN II-XII intact, oriented X3, strengths equal and symetr throughout - Psychiatric Psychiatric exam: Present: flat affect - Skin Skin exam: Present: dry, intact, warm Internal Med - H&P Results - Labs CBC & Chem 7: 03/16/19 00:12 03/16/19 00:12 Labs: Short CBC 03/15/19 03/16/19 Range/Units 19:29 00:12 WBC 11.8 H 11.0 (4.3-11.1) K/mcL Hgb 14.1 14.0 (11.5-15.4) g/dL Hct 40.5 39.5 (35.3-44.9) % Plt Count 199 198 (140-400) K/mcL Neutrophils # 7.4 5.2 (1.6-8.9) K/mcL BMP 03/15/19 03/16/19 19:29 00:12 Sodium 124 L 133 L D Potassium 4.0 3.7 Chloride 89 L 102 Carbon Dioxide 28 27 BUN 12 11 Creatinine 0.72 0.51 L Glucose 788 H* 392 H Calcium 9.0 8.2 L Liver Function 03/15/19 Range/Units 19:29 Total Bilirubin 0.7 (0.3-1.0) mg/dL Direct Bilirubin 0.1 (0.0-0.2) mg/dL AST 110 H (13-39) Units/L ALT 166 H (7-52) Units/L Alkaline Phosphatase 380 H (34-104) Units/L Albumin 3.4 L (3.5-5.7) g/dL Urine 03/15/19 Range/Units 18:51 Urine Color Yellow (Yellow) Urine Clarity Clear (Clear) Urine pH 6.0 (5.0-8.0) pH Units Ur Specific [place] > 1.030 H (1.010-1.025) Urine Protein Negative (Neg-Trace) mg/dL Urine Glucose (UA) >=1000 H (Normal) mg/dL - ABG Interpretation ABG results: 03/15/19 20:09 VBG pH 7.44 H - Impressions ITS Impressions Chest X-Ray 03/15/19 20:28 IMPRESSION: No acute process. D/ / Yaw Grace MD / Yaw Grace MD Interpreting Provider: Yaw Grace MD - Time Spent With Patient Total time spent is greater than 50% in coordination of care (as documented) at patient's floor/unit and/or counseling patient: - Attending Attestation I discussed the patient ALTURAS, past medical history, review of systems, lab data, and exam findings with Dr. Zimmerman. I then saw and examined patient independently as well. Patient glucose level has improved significantly but he still remains elevated. She is being hydrated with IV fluids and frequent Accu- Cheks with insulin adjustments. Patient states she feels much better already. She still is thirsty, however. She admits to having polydipsia, polyuria, po lyphasia, and unintentional weight loss. She has been off medication for diabetes for quite some time. Furthermore, she has not followed up with her PCP and/or another physician whatsoever in several months. Unfortunately, she continues to use illicit drugs, primarily methamphetamine. This can only exacerbate her poor diabetes control and complications thereof. I counseled patient on the need to stop using street drugs and to start taking care of herself. She voiced understanding, but, however, I do not feel that she will comply with my advice. She is in dire need of diabetic education, close follow- up, and glucose control. I emphasized all the above to the patient and we will consult social work to assist with further needs while here in the hospital. Other than my comments above and documented exam findings, I agree with Dr. Zimmerman's assessment and plan.
[2019-03-16] MEDS ORDERED: Ibuprofen 400 MG TABLET PO PRN
[2019-03-16] MEDS ORDERED: Ondansetron 4 MG/2 ML VIAL IVP PRN
[2019-03-16] MEDS ORDERED: 0.9 % Sodium Chloride 1,000 ML IVC SCH
[2019-03-16] MEDS ORDERED: Naloxone 0.4 MG/ML INJ IVP PRN
[2019-03-16] MEDS ORDERED: D5% in Water 1,000 ML IVC PRN (00:01)
[2019-03-16] MEDS ORDERED: Dextrose Gel 15 GM/37.5 ML TUBE PO PRN ×2 (00:01)
[2019-03-16] MEDS ORDERED: *HR* Dextrose 50 % in Water (Syg) 50 ML SYRINGE IVP PRN (00:01)
[2019-03-16 00:35] LABS: Basophils # 0.1 K/mcL (0.0-0.2); Basophils % 0.5 %; Eosinophils # 0.2 K/mcL (0.0-0.6); Eosinophils % 1.5 %; Hematocrit 39.5 % (35.3-44.9); Immature Granulocytes % 0.1 % (0-4); Lymphocytes # 5.1 K/mcL (0.6-4.6); Lymphocytes % 46.3 %; Mean Corpuscular HGB Conc 35.4 g/dL (31.6-35.5); Mean Corpuscular Hemoglobin 29.6 pg (28.0-33.3); Mean Corpuscular Volume 83.5 fL (83.0-100.0); Mean Platelet Volume 10.3 fL (9.4-12.4); Monocytes # 0.5 K/mcL (0.0-1.3); Monocytes % 4.6 %; Neutrophils # 5.2 K/mcL (1.6-8.9); Platelet Count 198 K/mcL (140-400); Red Blood Count 4.73 M/mcL (3.82-4.97); Red Cell Distribution Width 12.3 % (11.5-14.5)
[2019-03-16 01:21] LABS: BUN/Creatinine Ratio 22 (6-26); Blood Urea Nitrogen 11 mg/dL (6-20); Calcium 8.2 mg/dL (8.6-10.3); Carbon Dioxide 27 mEq/L (23-29); Chloride 102 mEq/L (98-107); Chol/HDL Ratio 7.2 (0-4.9); Cholesterol 158 mg/dL (< 200); Glucose 392 mg/dL (70-105); HDL Cholesterol 22 mg/dL (40-59); LDL Cholesterol,Calculated 76 mg/dL (0-99); Osmolality,Calculated 292 (280-300); Potassium 3.7 mEq/L (3.5-5.1); Sodium 133 mEq/L (136-145); Triglycerides 298 mg/dL (< 150); eGFR For African Americans > 60 (> 60); eGFR For Non-African Americans > 60 (> 60)
[2019-03-16] MEDS ORDERED: *HR* Heparin 5,000 UNIT/ML VIAL SQ SCH (06:00)
[2019-03-16 08:10] LABS: Estimated Average Glucose 407 mg/dl
[2019-03-16 08:34] LABS: Albumin/Globulin Ratio 0.9 (1.1-2.2); Bilirubin,Direct 0.2 mg/dL (0.0-0.2); Bilirubin,Indirect 0.5 mg/dL (0.0-1.2); Bilirubin,Total 0.7 mg/dL (0.3-1.0); Globulin 3.2 g/dL (2.4-3.5); Total Protein 6.2 g/dL (6.4-8.9)
[2019-03-16] MEDS ORDERED: Insulin DETEMIR 100 UNIT/ML X5UNITS SQ SCH ×2 (09:00→21:00)
[2019-03-16] MEDS: Insulin LISPRO 300 UNITS/3 ML VIAL SQ SCH ×4 (09:03→12:09)
[2019-03-16 09:23] LABS: Hepatitis B Core IgM Nonreactive (Nonreactive)
[2019-03-16 09:24] LABS: Hepatitis A Antibody IgM Nonreactive (Nonreactive)
[2019-03-16 09:51] LABS: Amphetamine Screen,Urine Negative ng/mL (Cutoff=1000); Barbiturate Screen,Urine Negative ng/mL (Cutoff=200); Benzodiazepines Screen,Urine Negative ng/mL (Cutoff=200); Cannabinoid Screen,Urine Negative ng/mL (Cutoff = 50); Cocaine Screen,Urine Negative ng/mL (Cutoff= 300); Opiate Screen,Urine Negative ng/mL (Cutoff=300); Phencyclidine Screen,Urine Negative ng/mL (Cutoff=25)
[2019-03-16 11:17] VITALS: BP 134/89
--- NOTE | 2019-03-16 12:51 | Discharge Summary ---
Orders not resulted at time of discharge: Pending orders 03/16/19 07:29 Hepatitis Prof.(Routine A,B,C) AM 0400 03/16/19 12:18 Hepatitis C Virus Antibody Stat Date of Encounter: 03/16/19 Time of Encounter: 12:49 - Discharge Diagnosis (1) Uncontrolled diabetes mellitus Priority: Primary Status: Acute Qualifiers: Diabetes mellitus type: type 2 Glycemic state: with hyperglycemia Qualified Code(s): E11.65 - Type 2 diabetes mellitus with hyperglycemia (2) Noncompliance with medication regimen Priority: Secondary Status: Chronic (3) DVT prophylaxis Priority: Secondary Status: Chronic (4) Transaminitis Priority: Secondary Status: Chronic (5) HTN (hypertension) Priority: Secondary Status: Chronic Qualifiers: Hypertension type: essential hypertension Qualified Code(s): I10 - Essential (primary) hypertension (6) Hepatitis C Priority: Secondary Status: Chronic Qualifiers: Viral hepatitis chronicity: chronic Hepatic coma status: without hepatic coma Qualified Code(s): B18.2 - Chronic viral hepatitis C (7) Hepatic steatosis Priority: Secondary Status: Acute Hospital course: Ms. Briggs is a 43 year old female past medical history of type 2 diabetes presents the emergency department with complaint of fatigue 3 days. Patient states that she has not been taking her medications as prescribed. Her only home medications including victoza. Patient admitted to me during my evaluating that she has not been taking her medications as prescribed for the past 1-2 months. Patient was admitted to the hospital due to Hyperglycemia, due to uncont rolled diabetes and generalized weakness. Patient was managed with IV fluid and insulin coverage. Blood sugar in the 300s, patient without other labs abnormalities of HHS symptoms. Weakness resolved. Patient requested to be discharged home. Patient recommended to follow up with her PCP for possible medications adjustment. Recommended to follow up with GI as outpatient due to transminitis and hepatic steatosis on US. - Time Spent with Patient Total time spent providing and/or coordinating discharge services: Time spent: Greater than 30 minutes (35) - Discharge Medications Prescriptions: New Atorvastatin [Lipitor] 40 mg PO HS 30 Days #30 tablet Continued Alcohol Antiseptic Pads [Alcohol Pads] 1 each ACHS 30 Days #200 med..pad Blood Sugar Diagnostic [Glucose Test Strip] 1 each MC ACHS 30 Days #200 strip Pen Needle, Diabetic [Insulin Pen Needle] 1 each MC QID 30 Days #1 pack Lancets [Ultra Thin Lancets] 1 each ACHS 30 Days #200 each Liraglutide [Victoza 2-Alfredo] 1.6 units SQ DAILY 30 Days #4 pen.injctr Home Medications: Alcohol Antiseptic Pads [Alcohol Pads] 1 each ACHS 30 Days #200 med..pad 03/16/19 [Rx] Atorvastatin [Lipitor] 40 mg PO HS 30 Days #30 tablet 03/16/19 [Rx] Blood Sugar Diagnostic [Glucose Test Strip] 1 each ACHS 30 Days #200 strip 03/16/19 [Rx] Lancets [Ultra Thin Lancets] 1 each ACHS 30 Days #200 each 03/16/19 [Rx] Liraglutide [Victoza 2-Alfredo] 1.6 units SQ DAILY 30 Days #4 pen.injctr 03/16/19 [Rx] Pen Needle, Diabetic [Insulin Pen Needle] 1 each QID 30 Days #1 pack 03/16/19 [Rx] Allergies/Adverse Reactions: Allergy/AdvReac Type Severity Reaction Status Date / Time No Known Allergies Allergy Verified 03/15/19 19:46 Date of admission: 03/15/19 22:22 Primary care physician: PCP NONE Consults: 03/16/19 00:03 Consult to [employer] [CONS] Routine Reason for SW Consult: Drug use, no PCP, access to meds - Constitutional Vitals: Temp Pulse Resp BP Pulse Ox 98.0 F 75 18 134/89 98 03/16/19 11:13 03/16/19 11:13 03/16/19 11:13 03/16/19 11:13 03/16/19 11:13 General appearance: Present: cooperative, A&O X 3, pleasant, no acute distress Exam: Vitals: Reviewed General: Alert and oriented x4. In no distress Skin: Normal color, no rash, no lesions. HEENT: EOM, pupils equal, round and reactive. Cardiovascular: RRR, normal S1 & S2, no rubs, murmurs or gallops. Lungs: CTA b/l, no wheezes or crackles. Abdomen: Soft, non-tender, no rigidity. Extremities: No deformity, no edema or tenderness, no joint swelling or clubbing. Neurological: Normal cognition and motor skills. Rest of the physical exam is non contributory - Patient Status Disposition: Home, Self-Care Condition: Good Functional capacity at discharge: independent ambulation Overall status at discharge: patient is back to baseline - Discharge Instructions Instructions: How to Check Your Blood Sugar (GEN), Diabetes Mellitus Type 2 in Adults (GEN) - Diet and Activity Activity: resume usual activities as tolerated Diet: diabetic diet
[2019-03-16 18:47] LABS: Hepatitis B Surface Antigen Reactive (Nonreactive)
[2019-03-16 19:14] LABS: Hepatitis C Virus Antibody Reactive (Nonreactive)
[2019-03-16] MEDS ORDERED: Insulin LISPRO 300 UNITS/3 ML VIAL SQ SCH (21:00)
== END 2019-03-16 13:29 | disposition home or self-care (01) ==
LOC: 2ANU 18:43 → 3BNU 18:43 → EMEROOARM 18:43 → 2ANU 22:57
PROVIDERS: ADMIT Family Medicine; ATTEND Family Medicine

== ENCOUNTER 2021-10-28 11:39 | Observation (INO) ==
[2021-10-28 12:27] LABS: Basophils % 0.2 %; Eosinophils % 0.4 %; Hematocrit 46.3 % (35.3-44.9); Hemoglobin 14.9 g/dL (11.5-15.4); Immature Granulocytes % 0.5 % (0-4); Lymphocytes # 2.7 K/mcL (0.6-4.6); Lymphocytes % 32.4 %; Mean Corpuscular HGB Conc 32.2 g/dL (31.6-35.5); Mean Corpuscular Volume 93.3 fL (83.0-100.0); Monocytes # 0.4 K/mcL (0.0-1.3); Monocytes % 4.5 %; Neutrophils # 5.1 K/mcL (1.6-8.9); Platelet Count 155 K/mcL (140-400); Red Blood Count 4.96 M/mcL (3.82-4.97); Red Cell Distribution Width 15.2 % (11.5-14.5); White Blood Count 8.2 K/mcL (4.3-11.1)
[2021-10-28 12:27] LABS: Bacteria,Urine Few per hpf (None-Few); Bilirubin,Urine Negative (Negative); Blood,Urine Moderate (Negative); Clarity,Urine Clear (Clear); Color,Urine Yellow (Yellow); Glucose,Urine (UA) >=1000 mg/dL (Normal); Ketones,Urine Negative (Negative); Leukocyte Esterase,Urine Negative (Negative); Mucus,Urine Few per lpf (None-Few); Nitrite,Urine Negative (Negative); Protein,Urine Trace mg/dL (Neg-Trace); RBC,Urine 15-30 per hpf (0-3); Specific Gravity,Urine > 1.030 (1.010-1.025); Squamous Epithelial Cell,Urine Moderate per hpf (None-Few); WBC,Urine 30-50 per hpf (0-3)
[2021-10-28 12:50] LABS: Alanine Aminotransferase 87 Units/L (7-52); Albumin 2.8 g/dL (3.5-5.7); Albumin/Globulin Ratio 0.4 (1.1-2.2); Alkaline Phosphatase 1306 Units/L (34-104); Aspartate Amino Transferase 141 Units/L (13-39); BUN/Creatinine Ratio 19 (6-26); Bilirubin,Direct 2.7 mg/dL (0.0-0.2); Bilirubin,Indirect 1.8 mg/dL (0.0-1.0); Bilirubin,Total 4.5 mg/dL (0.3-1.0); Blood Urea Nitrogen 10 mg/dL (6-20); Calcium 8.7 mg/dL (8.6-10.3); Carbon Dioxide 27 mEq/L (23-29); Chloride 96 mEq/L (98-107); Glucose 466 mg/dL (70-105); Lipase 35 Units/L (11-82); Osmolality,Calculated 291 (280-300); Potassium 3.7 mEq/L (3.5-5.1); Sodium 131 mEq/L (136-145); Total Protein 9.8 g/dL (6.4-8.9); eGFR For African Americans > 60 (> 60); eGFR For Non-African Americans > 60 (> 60)
[2021-10-28 12:54] LABS: Troponin I 0.08 ng/mL (< 0.04)
[2021-10-28 13:12] LABS: INR 1.3; Prothrombin Time 14.2 Seconds (9.4-12.1)
[2021-10-28] MEDS ORDERED: Ondansetron 4 MG/2 ML VIAL IVP PRN (17:47)
[2021-10-28] MEDS ORDERED: Naloxone 0.4 MG/ML INJ IVP PRN ×3 (17:47→20:55)
[2021-10-28] MEDS ORDERED: Acetaminophen 325 MG TABLET PO PRN (19:36)
[2021-10-28] MEDS ORDERED: Melatonin 3 MG TABLET PO PRN (19:36)
[2021-10-28] MEDS ORDERED: *HR* HYDROcodone/Acet 5/325 mg TABLET PO PRN (19:36)
[2021-10-28] MEDS ORDERED: D5% in Water 1,000 ML IVC PRN (19:49)
[2021-10-28] MEDS ORDERED: Dextrose Gel 15 GM/37.5 ML TUBE PO PRN ×2 (19:49)
[2021-10-28] MEDS ORDERED: Isovue-370 500 ML BOTTLE IVP ONE (20:38)
[2021-10-28] MEDS: Insulin DETEMIR 100 UNIT/ML X5UNITS SUBQ SCH (21:20)
[2021-10-28] MEDS: Insulin LISPRO 300 UNITS/3 ML VIAL SUBQ SCH (21:20)
[2021-10-28 21:59] LABS: Acetaminophen < 10 mcg/mL (10-20); Salicylate < 2.5 mg/dL (15.0-30.0)
[2021-10-28 22:55] LABS: Hepatitis B Core IgM Nonreactive (Nonreactive)
[2021-10-28 22:56] LABS: Hepatitis A Antibody IgM Nonreactive (Nonreactive)
[2021-10-28] MEDS ORDERED: Perflutren Lipid Microsphere 1.3 ML in 0.9 % Sodium Chloride 8.7 ML IVP PRN (23:04)
[2021-10-29] MEDS: Insulin LISPRO 300 UNITS/3 ML VIAL SUBQ SCH ×5 (01:25→16:46)
[2021-10-29 02:52] LABS: Hepatitis B Surface Antigen Reactive (Nonreactive)
[2021-10-29 03:16] LABS: Hepatitis C Virus Antibody Reactive (Nonreactive)
[2021-10-29] MEDS: *HR* Dextrose 50 % in Water (Syg) 50 ML SYRINGE IVP PRN ×4 (04:31→09:53)
[2021-10-29 06:26] LABS: Basophils % 0.2 %; Eosinophils # 0.1 K/mcL (0.0-0.6); Eosinophils % 0.6 %; Immature Granulocytes % 3.9 % (0-4); Lymphocytes # 0.6 K/mcL (0.6-4.6); Lymphocytes % 5.2 %; Mean Corpuscular HGB Conc 31.5 g/dL (31.6-35.5); Mean Corpuscular Hemoglobin 29.3 pg (28.0-33.3); Mean Corpuscular Volume 92.9 fL (83.0-100.0); Mean Platelet Volume 10.3 fL (9.4-12.4); Monocytes # 0.6 K/mcL (0.0-1.3); Monocytes % 4.7 %; Neutrophils # 9.9 K/mcL (1.6-8.9); Platelet Count 202 K/mcL (140-400); Red Cell Distribution Width 14.3 % (11.5-14.5); Segmented Neutrophils % 85.4 %; White Blood Count 11.6 K/mcL (4.3-11.1)
[2021-10-29 06:29] LABS: Hemoglobin 8.2 g/dL (11.5-15.4)
[2021-10-29 06:54] LABS: Alanine Aminotransferase 56 Units/L (7-52); Albumin 2.5 g/dL (3.5-5.7); Albumin/Globulin Ratio 0.8 (1.1-2.2); Alkaline Phosphatase 284 Units/L (34-104); Aspartate Amino Transferase 29 Units/L (13-39); BUN/Creatinine Ratio 20 (6-26); Bilirubin,Total 0.3 mg/dL (0.3-1.0); Blood Urea Nitrogen 22 mg/dL (6-20); Calcium 8.3 mg/dL (8.6-10.3); Carbon Dioxide 24 mEq/L (23-29); Chloride 97 mEq/L (98-107); Globulin 3.1 g/dL (2.4-3.5); Glucose 332 mg/dL (70-105); Magnesium 1.5 mg/dL (1.6-2.6); Osmolality,Calculated 284 (280-300); Phosphorous 3.7 mg/dL (2.7-4.5); Potassium 4.1 mEq/L (3.5-5.1); Sodium 129 mEq/L (136-145); Total Protein 5.6 g/dL (6.4-8.9); Troponin I 0.04 ng/mL (< 0.04); eGFR For African Americans > 60 (> 60); eGFR For Non-African Americans 53 (> 60)
[2021-10-29] MEDS: Lactulose Oral Soln 20 GM/30 ML UDC PO SCH ×2 (11:10→20:33)
[2021-10-29] MEDS: Furosemide 40 MG TABLET PO SCH (11:10)
[2021-10-29] MEDS: Cefdinir 300 MG CAPSULE PO SCH ×2 (11:14→20:33)
[2021-10-29] MEDS: *HR* Buprenorphine HCl 8 MG TAB.SUBL SL SCH (14:23)
[2021-10-29 15:48] LABS: Glucose,Peritoneal Fluid 96 mg/dL (No Ref Range); LDH,Peritoneal Fluid 49 Units/L (No Ref Range)
[2021-10-29 17:01] LABS: Appearance of Peritoneal Fl HAZY (Clear)
[2021-10-29 17:13] LABS: Basophils,Peritoneal Fluid 0 %; Eosinophils,Peritoneal Fluid 0 %
[2021-10-29 19:50] LABS: Hematocrit 34.8 % (35.3-44.9)
[2021-10-29 19:54] LABS: Hemoglobin 11.5 g/dL (11.5-15.4)
[2021-10-29] MEDS: Insulin DETEMIR 100 UNIT/ML X5UNITS SUBQ SCH (20:42)
[2021-10-29] MEDS ORDERED: Insulin LISPRO 300 UNITS/3 ML VIAL SUBQ SCH (21:00)
[2021-10-29 21:01] LABS: Hepatitis B Core IgM Nonreactive (Nonreactive)
[2021-10-29 22:27] LABS: Hepatitis B Surface Antigen Reactive (Nonreactive)
[2021-10-30 05:27] LABS: Hematocrit 34.4 % (35.3-44.9); Hemoglobin 11.6 g/dL (11.5-15.4)
[2021-10-30 05:28] LABS: Basophils % 0.3 %; Eosinophils # 0.1 K/mcL (0.0-0.6); Eosinophils % 0.8 %; Hemoglobin 11.5 g/dL (11.5-15.4); Immature Granulocytes % 0.3 % (0-4); Lymphocytes # 3.7 K/mcL (0.6-4.6); Lymphocytes % 35.3 %; Mean Corpuscular HGB Conc 32.9 g/dL (31.6-35.5); Mean Corpuscular Hemoglobin 29.3 pg (28.0-33.3); Mean Corpuscular Volume 89.3 fL (83.0-100.0); Mean Platelet Volume 10.5 fL (9.4-12.4); Monocytes # 0.7 K/mcL (0.0-1.3); Monocytes % 6.3 %; Neutrophils # 5.9 K/mcL (1.6-8.9); Platelet Count 150 K/mcL (140-400); Red Blood Count 3.92 M/mcL (3.82-4.97); Red Cell Distribution Width 15.6 % (11.5-14.5); White Blood Count 10.3 K/mcL (4.3-11.1)
[2021-10-30 05:51] LABS: Alanine Aminotransferase 68 Units/L (7-52); Albumin/Globulin Ratio 0.4 (1.1-2.2); Alkaline Phosphatase 1044 Units/L (34-104); Aspartate Amino Transferase 154 Units/L (13-39); BUN/Creatinine Ratio 26 (6-26); Bilirubin,Total 3.6 mg/dL (0.3-1.0); Blood Urea Nitrogen 9 mg/dL (6-20); Calcium 7.7 mg/dL (8.6-10.3); Carbon Dioxide 26 mEq/L (23-29); Chloride 104 mEq/L (98-107); Globulin 4.9 g/dL (2.4-3.5); Glucose 103 mg/dL (70-105); Magnesium 1.7 mg/dL (1.6-2.6); Osmolality,Calculated 281 (280-300); Phosphorous 3.7 mg/dL (2.7-4.5); Potassium 3.4 mEq/L (3.5-5.1); Sodium 136 mEq/L (136-145); Total Protein 6.9 g/dL (6.4-8.9); eGFR For African Americans > 60 (> 60); eGFR For Non-African Americans > 60 (> 60)
[2021-10-30 07:43] VITALS: BP 119/74; PULSE 70; TEMP 98.3; O2SAT 96
[2021-10-30] MEDS ORDERED: levoFLOXacin 750 MG TABLET PO SCH (09:00)
[2021-10-30] MEDS ORDERED: Spironolactone 25 MG TABLET PO SCH (09:00)
[2021-10-30] MEDS: Insulin LISPRO 300 UNITS/3 ML VIAL SUBQ SCH (10:20)
[2021-10-30] MEDS: *HR* Buprenorphine HCl 8 MG TAB.SUBL SL SCH (11:37)
[2021-10-30] MEDS: Furosemide 40 MG TABLET PO SCH (11:38)
[2021-10-30] MEDS: Lactulose Oral Soln 20 GM/30 ML UDC PO SCH (11:38)
[2021-10-31 10:21] LABS: Hepatitis B Core Ab Total POSITIVE (Negative)
[2021-10-31 14:47] LABS: Hepatitis Be Antigen POSITIVE (Negative)
[2021-10-31 22:06] LABS: Fluid Source for Albumin PERITONEAL FL
[2021-11-01 03:18] LABS: Alkaline Phosphatase 1325 U/L (40-120); Alkaline Phosphatase Bone 292 U/L (0-55)
[2021-11-01 12:20] LABS: HIV-1 Viral Load Interp NOT DETECTED (Not Detected)
[2021-11-01 12:28] LABS: Alkaline Phosphatase Liver 1034 U/L (0-94); Alkaline Phosphatase Other 0 U/L
== END 2021-10-30 11:41 | disposition home or self-care (01) ==
LOC: 2ANU 11:39 → EMEROOARM 11:39 → SUATTDRO 17:42 → 2ANU 18:31
PROVIDERS: ADMIT Internal Medicine; ATTEND Internal Medicine

== ENCOUNTER 2022-06-14 20:06 | Inpatient (IN) ==
[2022-06-14] MEDS ORDERED: 0.9 % Sodium Chloride 1,000 ML ONE ×2 (20:18→21:50)
[2022-06-14] MEDS ORDERED: 0.9 % Sodium Chloride 1,000 ML IVC ONE (20:18)
[2022-06-14 20:29] LABS: Hemoglobin 12.9 g/dL (11.5-15.4); Red Cell Distribution Width 13.6 % (11.5-14.5)
[2022-06-14 20:31] LABS: Hematocrit 38.3 % (35.3-44.9); Immature Platelets 8.4 % (1.1-6.1); Mean Corpuscular HGB Conc 33.7 g/dL (31.6-35.5); Mean Corpuscular Hemoglobin 29.5 pg (28.0-33.3); Mean Corpuscular Volume 87.6 fL (83.0-100.0); Mean Platelet Volume 11.6 fL (9.4-12.4); Platelet Count 118 K/mcL (140-400); Red Blood Count 4.37 M/mcL (3.82-4.97); White Blood Count 8.5 K/mcL (4.3-11.1)
[2022-06-14 20:51] LABS: Lymphocytes # 0.7 K/mcL (0.6-4.6); Monocytes # 0.2 K/mcL (0.0-1.3); Neutrophils # 7.7 K/mcL (1.6-8.9); Platelet Estimate Decreased (Normal)
[2022-06-14 21:01] LABS: VBG HCO3 19 mEq/L (21-27); VBG PCO2 31 mmHg (41-51); VBG PO2 68 mmHg (25-50)
[2022-06-14 21:14] LABS: Albumin 3.3 g/dL (3.5-5.7); Albumin/Globulin Ratio 0.7 (1.1-2.2); Bilirubin,Direct 0.7 mg/dL (0.0-0.2); Bilirubin,Indirect 1.2 mg/dL (0.0-1.0); Bilirubin,Total 1.9 mg/dL (0.3-1.0); Calcium 9.9 mg/dL (8.6-10.3); Globulin 4.9 g/dL (2.4-3.5); Magnesium 1.7 mg/dL (1.6-2.6); Potassium 4.1 mEq/L (3.5-5.1); Total Protein 8.2 g/dL (6.4-8.9); Troponin I 0.04 ng/mL (< 0.04)
[2022-06-14] MEDS ORDERED: Iopamidol - 370 500 ML MLS IVP ONE (21:22)
[2022-06-14] MEDS ORDERED: cefTRIAXone 2,000 MG in 0.9 % Sodium Chloride 20 ML IVP ONE (21:25)
[2022-06-14] MEDS ORDERED: 0.9 % Sodium Chloride 500 ML IVC ONE (21:26)
[2022-06-14] MEDS ORDERED: Insulin Human Regular 10 UNIT in 0.9 % Sodium Chloride 10 ML IV ONE (21:33)
[2022-06-14 23:34] LABS: INR 1.2; Prothrombin Time 13.9 Seconds (9.4-12.1)
[2022-06-14] MEDS ORDERED: Ringers Solution, Lactated 1,000 ML IVC ONE (23:36)
[2022-06-14] MEDS ORDERED: Naloxone 0.4 MG/ML INJ IVP PRN (23:39)
[2022-06-14] MEDS ORDERED: Melatonin 3 MG TABLET PO PRN (23:39)
[2022-06-14] MEDS ORDERED: Ondansetron 4 MG/2 ML VIAL IVP PRN (23:39)
[2022-06-14] MEDS ORDERED: Ringers Solution, Lactated 1,000 ML ONE (23:40)
[2022-06-14] MEDS ORDERED: Insulin DETEMIR 100 UNIT/ML X5UNITS SUBQ SCH (23:45)
[2022-06-14] MEDS ORDERED: *HR* Dextrose 50 % in Water (Syg) 50 ML SYRINGE IVP PRN (23:56)
[2022-06-14] MEDS ORDERED: D5% in Water 1,000 ML IVC PRN (23:56)
[2022-06-14] MEDS ORDERED: Dextrose Gel 15 GM/37.5 ML TUBE PO PRN ×2 (23:56)
[2022-06-15] MEDS ORDERED: Sodium Bicarbonate 150 MEQ in Water for inj. (sterile) 1,000 ML IVC SCH ×2 (01:00)
[2022-06-15] MEDS ORDERED: Naloxone 0.4 MG/ML INJ IVP PRN (01:09)
[2022-06-15 01:15] LABS: Basophils % 0.1 %; Eosinophils % 0.1 %; Hematocrit 29.7 % (35.3-44.9); Hemoglobin 10.4 g/dL (11.5-15.4); Immature Granulocytes % 0.4 % (0-4); Immature Platelets 7.4 % (1.1-6.1); Lymphocytes # 1.4 K/mcL (0.6-4.6); Lymphocytes % 10.6 %; Mean Corpuscular Hemoglobin 29.2 pg (28.0-33.3); Mean Corpuscular Volume 83.4 fL (83.0-100.0); Mean Platelet Volume 11.4 fL (9.4-12.4); Monocytes # 0.6 K/mcL (0.0-1.3); Monocytes % 4.1 %; Red Blood Count 3.56 M/mcL (3.82-4.97); Red Cell Distribution Width 13.7 % (11.5-14.5); Segmented Neutrophils % 84.7 %; White Blood Count 13.5 K/mcL (4.3-11.1)
[2022-06-15 01:17] LABS: Neutrophils # 11.4 K/mcL (1.6-8.9); Platelet Count 91 K/mcL (140-400)
[2022-06-15 01:20] LABS: INR 1.3; Prothrombin Time 14.8 Seconds (9.4-12.1)
[2022-06-15 01:41] LABS: Albumin 2.8 g/dL (3.5-5.7); Albumin/Globulin Ratio 0.7 (1.1-2.2); Bilirubin,Direct 0.5 mg/dL (0.0-0.2); Bilirubin,Indirect 0.6 mg/dL (0.0-1.0); Bilirubin,Total 1.1 mg/dL (0.3-1.0); Calcium 8.6 mg/dL (8.6-10.3); Chol/HDL Ratio 4.9 (0-4.9); Magnesium 1.4 mg/dL (1.6-2.6); Phosphorous 2.3 mg/dL (2.7-4.5); Potassium 3.3 mEq/L (3.5-5.1); Total Protein 6.8 g/dL (6.4-8.9)
[2022-06-15 02:57] LABS: Bacteria,Urine Many per hpf (None-Few); Bilirubin,Urine Negative (Negative); Blood,Urine Moderate (Negative); Clarity,Urine Turbid (Clear); Color,Urine Yellow (Yellow); Glucose,Urine (UA) >=1000 mg/dL (Normal); Ketones,Urine Negative (Negative); Leukocyte Esterase,Urine Large (Negative); Nitrite,Urine Negative (Negative); Protein,Urine Trace mg/dL (Neg-Trace); RBC,Urine 30-50 per hpf (0-3); Specific Gravity,Urine 1.022 (1.010-1.025); Squamous Epithelial Cell,Urine Moderate per hpf (None-Few); Urobilinogen,Urine Normal (Normal); WBC,Urine 50-100 per hpf (0-3)
[2022-06-15] MEDS ORDERED: Insulin LISPRO 300 UNITS/3 ML VIAL SUBQ ONE (02:57)
[2022-06-15 03:08] LABS: Amphetamine Screen,Urine Negative ng/mL (Cutoff=1000); Barbiturate Screen,Urine Negative ng/mL (Cutoff=200); Benzodiazepines Screen,Urine Negative ng/mL (Cutoff=200); Cannabinoid Screen,Urine Negative ng/mL (Cutoff = 50); Cocaine Screen,Urine Negative ng/mL (Cutoff= 300); Opiate Screen,Urine Negative ng/mL (Cutoff=300); Phencyclidine Screen,Urine Negative ng/mL (Cutoff=25)
[2022-06-15 04:26] LABS: Albumin 2.9 g/dL (3.5-5.7); Albumin/Globulin Ratio 0.7 (1.1-2.2); Bilirubin,Direct 0.6 mg/dL (0.0-0.2); Bilirubin,Indirect 0.5 mg/dL (0.0-1.0); Bilirubin,Total 1.1 mg/dL (0.3-1.0); Globulin 4.2 g/dL (2.4-3.5); Total Protein 7.1 g/dL (6.4-8.9)
[2022-06-15] MEDS: *HR* Heparin 5,000 UNIT/ML VIAL SQ SCH ×2 (05:07→17:09)
[2022-06-15 05:20] LABS: Hepatitis B Core IgM Nonreactive (Nonreactive)
[2022-06-15] MEDS ORDERED: 0.9 % Sodium Chloride 500 ML ONE (08:21)
[2022-06-15] MEDS: 0.9 % Sodium Chloride 500 ML IVC ONE ×2 (08:25→09:00)
[2022-06-15] MEDS: Lactulose Oral Soln 20 GM/30 ML UDC PO SCH ×2 (08:32→19:43)
[2022-06-15] MEDS: cefTRIAXone 2,000 MG in 0.9 % Sodium Chloride 20 ML IVP SCH (08:32)
[2022-06-15] MEDS: Nicotine 14 MG PATCH.TD24 TD SCH (08:32)
[2022-06-15] MEDS: Insulin LISPRO 300 UNITS/3 ML VIAL SUBQ SCH ×3 (08:33→16:22)
[2022-06-15] MEDS: Insulin DETEMIR 100 UNIT/ML X5UNITS SUBQ SCH ×2 (08:34→19:43)
[2022-06-15] MEDS ORDERED: Ringers Solution, Lactated 1,000 ML IVC SCH (11:15)
[2022-06-15] MEDS ORDERED: Gadolinium Contrast Agent (WT Based) IV PRN (11:30)
[2022-06-15 13:55] LABS: Hepatitis B Surface Antigen Reactive (Nonreactive); Hepatitis C Virus Antibody Reactive (Nonreactive)
[2022-06-16 04:10] LABS: Hemoglobin 10.5 g/dL (11.5-15.4); Mean Platelet Volume 10.9 fL (9.4-12.4)
[2022-06-16 04:12] LABS: Hematocrit 29.7 % (35.3-44.9); Immature Platelets 5.5 % (1.1-6.1); Mean Corpuscular HGB Conc 35.4 g/dL (31.6-35.5); Mean Corpuscular Hemoglobin 29.9 pg (28.0-33.3); Mean Corpuscular Volume 84.6 fL (83.0-100.0); Red Blood Count 3.51 M/mcL (3.82-4.97); Red Cell Distribution Width 14.3 % (11.5-14.5); White Blood Count 12.4 K/mcL (4.3-11.1)
[2022-06-16 04:13] LABS: Platelet Count 89 K/mcL (140-400)
[2022-06-16 04:30] LABS: Alanine Aminotransferase 102 Units/L (7-52); Albumin 2.9 g/dL (3.5-5.7); Albumin/Globulin Ratio 0.7 (1.1-2.2); Alkaline Phosphatase 596 Units/L (34-104); Aspartate Amino Transferase 90 Units/L (13-39); BUN/Creatinine Ratio 19 (6-26); Bilirubin,Total 0.9 mg/dL (0.3-1.0); Blood Urea Nitrogen 12 mg/dL (6-20); Calcium 8.8 mg/dL (8.6-10.3); Carbon Dioxide 27 mEq/L (23-29); Chloride 101 mEq/L (98-107); Globulin 4.1 g/dL (2.4-3.5); Glucose 198 mg/dL (70-105); Osmolality,Calculated 281 (280-300); Potassium 3.2 mEq/L (3.5-5.1); Sodium 133 mEq/L (136-145)
[2022-06-16] MEDS: *HR* Heparin 5,000 UNIT/ML VIAL SQ SCH (04:33)
[2022-06-16 04:34] LABS: Eosinophils # 0.3 K/mcL (0.0-0.6); Lymphocytes # 4.5 K/mcL (0.6-4.6); Neutrophils # 6.7 K/mcL (1.6-8.9); Platelet Estimate Decreased (Normal)
[2022-06-16 07:24] VITALS: BP 140/95; TEMP 97.4; O2SAT 99
[2022-06-16] MEDS: Lactulose Oral Soln 20 GM/30 ML UDC PO SCH (07:57)
[2022-06-16] MEDS: Insulin LISPRO 300 UNITS/3 ML VIAL SUBQ SCH (07:57)
[2022-06-16] MEDS: cefTRIAXone 2,000 MG in 0.9 % Sodium Chloride 20 ML IVP SCH (07:58)
[2022-06-16] MEDS: Insulin DETEMIR 100 UNIT/ML X5UNITS SUBQ SCH (07:58)
[2022-06-16] MEDS: Nicotine 14 MG PATCH.TD24 TD SCH (07:58)
[2022-06-16] MEDS ORDERED: lisinopriL 20 MG TABLET PO SCH (09:00)
[2022-06-16 09:01] VITALS: PULSE 86
[2022-06-19 04:49] LABS: HBV Quant Interpretation DETECTED (Not Detected); HBV Quant Log by PCR 4.26 log IU/mL
== END 2022-06-16 09:54 | disposition home or self-care (01) | DRG 720 ==
LOC: 2NNU 20:06 → EMEROOARM 20:06 → SUATTDRO 23:18 → 2NNU 23:50 → SUATTDRO 06-15 01:09
PROVIDERS: ADMIT Pharmacist; ATTEND Internal Medicine